=== PATIENT | female | born 1960 | race Caucasian/White ===

== ENCOUNTER 2019-04-15 16:27 | Emergency (ER) | payer BC, SELFPAY ==
--- NOTE | ~2019-04-15 | CT_ITS ---
EXAMINATION: CT abdomen pelvis wo con EXAM DATE: 04/15/2019 19:00 INDICATION: Right lower quadrant abdominal pain. TECHNIQUE: Spiral CT of the abdomen and pelvis was performed without contrast. Axial, coronal and s agittal images were reviewed. The dose-length product (DLP) for this examination was 405.02 mGy-cm. The exposure was tailored according to patient size (auto mA exposure control), and iterative recons truction (ASIR) was used as additional dose reduction technique. There is no prior study for jaimei son. FINDINGS: The liver, spleen, adrenal glands and pancreas are unremarkable. There are cholecystectomy clips. There is no nephrolithiasis or hydronephrosis. The uterus is not identified and has likely been surgically resected. The bladder is unremarkable. There is no retroperitoneal or pelvic lymph adenopathy. There is mild scattered arteriosclerotic disease. The appendix is not positively visualized. There is no pericecal inflammatory change to suggest appe ndicitis. There is moderate sigmoid predominant colonic diverticulosis. There is no adjacent inflamm atory change to suggest diverticulitis. The stomach and small bowel are unremarkable. There is mild s igmoid colonic diverticulosis. There is no adjacent inflammatory change to suggest diverticulitis. No free intraperitoneal gas. The heart is normal in size. There are no pericardial or pleural effu sions. The lung bases are unremarkable. The bones are unremarkable. There is right hip replacement . IMPRESSION: 1. No acute intra-abdominal findings. 2. Moderate colonic diverticulosis. Reviewed, dictated and finalized at location A.
[2019-04-15 16:42] VITALS: BP 165/72; PULSE 64; RESP 16; TEMP 36.8; O2SAT 100
[2019-04-15 16:55] LABS: Basophils Percent Auto 0.5 % (0.2-1.2); Eosinophils Absolute Auto 0.1 K/mm3 (0-0.3); Eosinophils Percent Auto 1.2 % (0-4.4); Hemoglobin 13.5 g/dL (12.0-15.0); Immature Granulocyte Absolute 0.02 K/mm3 (0.00-0.031); Immature Granulocyte Percent A 0.3 % (0-0.5); Lymphocytes Absolute Auto 2.07 K/mm3 (0.9-3.2); Lymphocytes Percent Auto 35.1 % (18.3-44.2); Mean Corpuscular HGB Conc 32.9 g/dl (32-36); Mean Corpuscular Hemoglobin 30.3 pg (26-34); Mean Corpuscular Volume 91.9 fl (80-100); Mean Platelet Volume 11.8 fl (7.4-10.4); Monocytes Absolute Auto 0.4 K/mm3 (0.1-0.6); Monocytes Percent Auto 6.9 % (2.6-8.5); Neutrophils Absolute Auto 3.3 K/mm3 (1.3-6.7); Platelet Count Result 205 k/mm3 (150-375); Red Blood Count 4.46 M/mm3 (4.2-5.4); Red Cell Distribution Width 13.1 % (11.5-14.5); White Blood Count 5.9 K/mm3 (4.5-10.0)
[2019-04-15 17:07] LABS: Alanine Aminotransferase 53 U/L (4-35); Albumin Level 4.6 g/dL (3.5-5.1); Alkaline Phosphatase 65 U/L (38-126); Aspartate Amino Transferase 38 U/L (14-36); Bilirubin,Total 0.6 mg/dL (0.2-1.3); Blood Urea Nitrogen 14 mg/dL (7-17); Carbon Dioxide 28 mmol/L (22-30); Chloride 104 mmol/L (98-107); Estimated CRCL calculation 65 ml/min; Estimated Glomerular Filt Rate > 60; Glucose 91 mg/dL (65-105); Lipase 149 U/L (23-300); Potassium 3.8 mmol/L (3.4-5.0); Sodium 138 mmol/L (137-145)
[2019-04-15 18:26] VITALS: BP 169/64; PULSE 56; RESP 16; O2SAT 99
--- NOTE | 2019-04-15 18:28 | ED.NAVMDI ---
HPI - Nausea/Vomiting/Diarrhea General Chief complaint: Nausea/Vomiting/Diarrhea Stated complaint: BLD IN STOOL Time Seen by Provider: 04/15/19 18:23 Source: patient and RN notes reviewed Mode of arrival: ambulatory Limitations: no limitations History of Present Illness HPI Narrative: A 59 y/o female presents to the ED with bright red bloody diarrhea for the past week. She states that she was started on Leflunomide last week and that shortly after she developed her symptoms. She reports associated nausea, RLQ ABD pain, and lightheadedness. She notes that she called her archery equipment repairer, Dr. Fisher, yesterday who told her to stop her Leflunomide, but that they called her back today and told her that she needed to come to the ED. She denies any vomiting, fevers, chills, rashes, syncope, or numbness. MD elicited complaint: diarrhea Pertinent past history: bowel obstruction and abdominal surgery Onset (ago): week(s) (1) Description of diarrhea: blood (bright red) Associated nausea: Yes Associated abdominal pain: Yes Location of pain: RLQ Context: new medication (Leflunomide) Associated symptoms: other (Lightheadedness) Related Data Home Medications Medication Instructions Recorded Confirmed hydroxychloroquine 200 mg tablet 200 mg PO DAILY 01/09/19 lorazepam 0.5 mg tablet 0.5 mg PO DAILY PRN 01/09/19 metoprolol succinate 25 mg capsule 25 mg PO DAILY 01/09/19 sprinkle, ext. release 24 hr metoprolol succinate 25 mg 25 mg PO DAILY 01/09/19 tablet,extended release 24 hr pantoprazole 40 mg granules 40 mg PO DAILY 01/09/19 delayed-release for susp in packet Allergies Allergy/AdvReac Type Severity Reaction Status Date / Time doxycycline Allergy Severe HIVES Verified 10/06/18 19:58 gabapentin Allergy Severe N/V Verified 10/06/18 19:58 Iodinated Contrast Media Allergy Severe SWELLING, Verified 10/06/18 19:58 SOB ofloxacin Allergy Severe HIVES Verified 10/06/18 19:58 shellfish derived Allergy Severe SWELLING, Verified 10/06/18 19:58 SOB sulfamethoxazole Allergy Severe SWELLING, Verified 10/06/18 19:58 SOB clarithromycin Allergy Unknown Unknown Verified 01/10/18 11:10 codeine Allergy Unknown Unknown Verified 01/10/18 11:09 iodine Allergy Unknown Unknown Verified 01/10/18 11:09 minocycline Allergy Unknown Unknown Verified 01/10/18 11:11 morphine Allergy Unknown Unknown Verified 01/10/18 11:09 naproxen Allergy Unknown Unknown Verified 01/10/18 11:10 Penicillins Allergy Unknown Unknown Verified 01/10/18 11:09 Sulfa (Sulfonamide Allergy Unknown Unknown Verified 01/10/18 11:09 Antibiotics) sulfamethizole Allergy Unknown Unknown Verified 01/10/18 11:09 trimethoprim Allergy Unknown Unknown Verified 01/10/18 11:10 brimonidine AdvReac Intermediate NOT Verified 10/06/18 19:58 EFFECTIVE desonide AdvReac Intermediate NOT Verified 10/06/18 19:58 EFFECTIVE metronidazole AdvReac Intermediate NOT Verified 10/06/18 19:58 EFFECTIVE mupirocin AdvReac Intermediate NOT Verified 10/06/18 19:58 EFFECTIVE naftifine AdvReac Intermediate NOT Verified 10/06/18 19:58 EFFECTIVE NOVACET CREAM AdvReac Intermediate NON Uncoded 03/29/18 10:21 EFFECTIVE. Review of Systems Review of Systems: Narrative: CONSTITUTIONAL: Denies fevers or chills. CARDIOVASCULAR: Reports lightheadedness. GASTROINTESTINAL: Denies vomiting. Reports bright red bloody diarrhea, nausea, and RLQ ABD pain. SKIN: Denies rash. NEUROLOGIC: Denies syncope or numbness. All systems reviewed & are unremarkable except as noted in HPI and below PMFSH Past Medical History Medical History (Updated 04/15/19 @ 19:30 by Magui Gonzalez MD) Anxiety Arthritis Bowel obstruction Brain concussion Depression Early cataracts, bilateral GERD (gastroesophageal reflux disease) History of inguinal hernia History of kidney stones History of rectal polyps Hx of bladder cancer Hx of rotator cuff tear Rt. Lupus erythematosus MVP (mitral valve prolapse)
[2019-04-15 18:51] LABS: Add Urine Microscopic? YES; Appearance Urine Cloudy (Clear); Bacteria Urine Trace /hpf; Bilirubin Urine Negative (Negative); Blood Urine Negative (Negative); Color Urine Yellow (Yellow); Glucose Urine UA Negative (Negative); Ketones Urine Negative (Negative); Leukocyte Esterase Ur 3+ LEU/UL (Negative); Mucus Urine Rare /lpf; Nitrate Urine Negative (Negative); Protein Urine Negative (Negative); Specific Grav Ur 1.014 (1.001-1.035); Squamous Epithelial Cell Urine Many /hpf (Few); Urobilinogen Urine Negative mg/dL (<2.0); WBC Urine 51-75 /hpf
[2019-04-15 19:23] VITALS: BP 161/75; PULSE 64; RESP 12; O2SAT 98
[2019-04-15 20:20] VITALS: BP 122/77; PULSE 66; RESP 17; O2SAT 98
== END 2019-04-15 20:20 | disposition home or self-care (01) ==
PROVIDERS: Emergency Medicine; Emergency Provider Emergency Medicine
DX: N39.0 Urinary tract infection, site not specified (principal); L93.0 Discoid lupus erythematosus; I34.1 Nonrheumatic mitral (valve) prolapse; K21.9 Gastro-esophageal reflux disease without esophagitis; F32.9 Major depressive disorder, single episode, unspecified; F41.9 Anxiety disorder, unspecified; Z96.611 Presence of right artificial shoulder joint; M19.90 Unspecified osteoarthritis, unspecified site; Z87.442 Personal history of urinary calculi; H26.9 Unspecified cataract; Z87.19 Personal history of other diseases of the digestive system; Z85.51 Personal history of malignant neoplasm of bladder; K57.90 Diverticulosis of intestine, part unspecified, without perforation or abscess without bleeding
CPT/HCPCS: 36415; 74176; 80053; 81001; 83690; 85025; 87086; 87088; 99284

== ENCOUNTER 2022-09-07 13:46 | Observation (INO) | payer BC, SELFPAY ==
[2022-09-07] VITALS (16 sets, daily range): BP systolic 104–163; BP diastolic 49–97; PULSE 61–82; RESP 17–24; TEMP 36.6–37.2; O2SAT 92–100; BMI 24.0
--- NOTE | ~2022-09-07 | CT_ITS ---
EXAMINATION: CT brain wo con INDICATION: Transient alteration of awareness COMPARISON: None TECHNIQUE: Standard unenhanced head CT. The dose-length product (DLP) was 605.33 mGy-cm. The mA was a djusted according to patient size. Iterative reconstruction technique was employed. FINDINGS: There is no acute intraparenchymal hemorrhage. No evidence of mass lesion. No evidence of a cute infarction. There is mild periventricular and subcortical hypodensity probably related to small vessel ischemic disease. There is mild prominence of the sulci and ventricles related to cerebral atr ophy. Intracranial calcified cerebral atherosclerosis is noted. There are no extra-axial collections. There is no mass effect or midline shift. The orbits and soft tissues are unremarkable. There is mil d mucosal thickening of the paranasal sinuses. IMPRESSION: 1. No acute intracranial abnormality. 2. Age related findings. Reviewed, dictated and finalized at location F.
--- NOTE | ~2022-09-07 | CT_ITS ---
EXAMINATION: CT cervical spine wo con DATE: 09/07/2022 16:06 INDICATION: Neck pain TECHNIQUE: Computed tomography (CT) of the cervical spine was performed without intravenous contrast. The dose-length product (DLP) was 466.54 mGy-cm. Automated exposure control and iterative reconstruc tion technique were employed. COMPARISON: 10/06/2018 FINDINGS: Bone alignment is normal. There is no fracture. There is moderate loss of intervertebral di sc space height at C4-5, C5-C6, and C6-7. The vertebral body heights are maintained. The odontoid pro cess is intact. Small degenerative osteophytes project from the anterior endplates of multiple verteb ral bodies. There is multilevel moderate facet and uncovertebral joint osteoarthritis. IMPRESSION: 1. Moderate cervical spondylosis without acute findings or significant interval change. Reviewed, dictated and finalized at location F.
--- NOTE | ~2022-09-07 | XR_ITS ---
EXAMINATION: XR chest 1V DATE: 09/07/2022 16:15 INDICATION: Cough. TECHNIQUE: A single frontal view of the chest was obtained. COMPARISON: Chest 2 views 04/15/2009 FINDINGS: There is no pneumonia, pleural effusion, or pneumothorax. The heart size is normal. Surgica l clips in the right upper quadrant are likely from cholecystectomy. IMPRESSION: 1. No acute cardiopulmonary disease. Reviewed, dictated and finalized at location L.
--- NOTE | ~2022-09-07 | XR_ITS ---
EXAMINATION: XR hip LT 2V w AP pelvis DATE: 09/07/2022 16:14 INDICATION: Left hip pain. Fall. TECHNIQUE: An anteroposterior view of the pelvis and 2 views of left hip were obtained. COMPARISON: None. FINDINGS: There is a total right hip arthroplasty in near-anatomic alignment. No fracture. No peripro sthetic lucency to suggest loosening or infection. Left hip joint space is normal. There is mild lumb ar spondylosis. IMPRESSION: 1. Normal left hip. 2. Total right hip arthroplasty in near-anatomic alignment. Reviewed, dictated and finalized at location L.
[2022-09-07] MEDS: ONDANSETRON INJ 4 MG/2 ML VIAL IV PUSH (15:48)
[2022-09-07] MEDS: LACTATED RINGERS 1,000 ML 999 ML IV CONT (15:49)
[2022-09-07 16:01] LABS: Basophils Percent Auto 0.2 % (0.2-1.2); Hematocrit 39.9 % (37.0-47.0); Hemoglobin 13.3 g/dL (12.0-15.0); Immature Granulocyte Absolute 0.01 K/mm3 (0.00-0.031); Immature Granulocyte Percent A 0.2 % (0-0.5); Lymphocytes Absolute Auto 0.93 K/mm3 (0.9-3.2); Lymphocytes Percent Auto 18.9 % (18.3-44.2); Mean Corpuscular HGB Conc 33.3 g/dl (32-36); Mean Corpuscular Hemoglobin 31.3 pg (26-34); Mean Corpuscular Volume 93.9 fl (80-100); Mean Platelet Volume 12.4 fl (7.4-10.4); Monocytes Absolute Auto 0.6 K/mm3 (0.1-0.6); Monocytes Percent Auto 12.6 % (2.6-8.5); Neutrophils Absolute Auto 3.4 K/mm3 (1.3-6.7); Neutrophils Percent Auto 68.1 % (45.5-73.1); Platelet Count Result 142 k/mm3 (150-375); Red Blood Count 4.25 M/mm3 (4.2-5.4); Red Cell Distribution Width 13.2 % (11.5-14.5); White Blood Count 4.9 K/mm3 (4.5-10.0)
[2022-09-07 16:11] LABS: Alanine Aminotransferase 44 U/L (6-35); Albumin Level 4.4 g/dL (3.5-5.1); Alkaline Phosphatase 50 U/L (38-126); Anion Gap 7 mmol/L (8-16); Aspartate Amino Transferase 52 U/L (14-36); Bilirubin,Total 0.6 mg/dL (0.2-1.3); Blood Urea Nitrogen 13 mg/dL (7-17); Calcium 8.3 mg/dL (8.4-10.2); Carbon Dioxide 27 mmol/L (22-30); Chloride 95 mmol/L (98-107); Estimated CRCL calculation 50 ml/min; Estimated Glomerular Filt Rate > 60; Glucose 116 mg/dL (65-110); Lipase 194 U/L (23-300); Magnesium 1.9 mg/dL (1.6-2.3); Potassium 3.2 mmol/L (3.4-5.0); Sodium 129 mmol/L (137-145)
[2022-09-07 16:23] LABS: Troponin I < 0.012 ng/mL (0.000-0.034)
--- NOTE | 2022-09-07 16:54 | ED.GENADULT ---
HPI - General Adult General Chief complaint: Recheck/Abnormal Lab/Rx Stated complaint: COVID + - states i'm dehydrated Time Seen by Provider: 09/07/22 15:16 Source: patient, family and RN notes reviewed Mode of arrival: wheelchair Limitations: no limitations History of Present Illness HPI narrative: This is a 62 year old female with history of sjrogrens, lupus who presents for evaluation of covid symptoms and syncope. Patient states starting on Sunday she developed sore throat, chills, and cough. She reports her sore throat has continued and she describes it has burning pain. She started having nausea, vomiting and diarrhea yesterday. She performed a home COVid test and she has been found to be positive. Her daughter states she heard a thud and she had found patient had passed outpatient. Patient states she was in the kitchen and next thing she was on the floor waking up to her daughter. She reports left neck pain and left hip pain from her fall. She denies chest pain. It is reported that patient is feeling lightheaded due to dehydration. Nursing staff reports that patient felt like she was going to pass out in triage so they placed her in a room Related Data Home Medications Medication Instructions Recorded Confirmed pantoprazole 40 mg granules 40 mg PO DAILY PRN Acid Reflux 01/09/19 09/07/22 delayed-release for susp in packet hydroxychloroquine 200 mg tablet 200 mg PO BID 01/18/22 09/07/22 (Plaquenil) nadolol 20 mg tablet 30 mg PO DAILY 01/18/22 09/07/22 azithromycin 250 mg tablet 250 mg PO DAILY 09/07/22 09/07/22 cyclobenzaprine 5 mg tablet 5 mg PO TID 09/07/22 09/07/22 cyclosporine 0.05 % eye drops in a 1 drp EACH EYE BID 09/07/22 09/07/22 dropperette hydrochlorothiazide 12.5 mg tablet 12.5 mg PO EVERY OTHER DAY 09/07/22 09/07/22 multivit with minerals-iron 18 1 tablet PO DAILY 09/07/22 09/07/22 mg-folic ac 400 mcg-vit K 25 mcg tablet (Adults Multivitamin) prednisone 5 mg tablet 5 mg PO DAILY PRN arthritis 09/07/22 09/07/22 pregabalin 50 mg capsule 50 mg PO Q12H 09/07/22 09/07/22 Allergies Allergy/AdvReac Type Severity Reaction Status Date / Time doxycycline Allergy Severe HIVES Verified 09/07/22 14:33 gabapentin Allergy Severe N/V Verified 09/07/22 14:33 Iodinated Contrast Media Allergy Severe SWELLING, Verified 09/07/22 14:33 SOB ofloxacin Allergy Severe HIVES Verified 09/07/22 14:33 shellfish derived Allergy Severe SWELLING, Verified 09/07/22 14:33 SOB sulfamethoxazole Allergy Severe SWELLING, Verified 09/07/22 14:33 SOB clarithromycin Allergy Unknown Unknown Verified 09/07/22 14:33 codeine Allergy Unknown Unknown Verified 09/07/22 14:33 iodine Allergy Unknown Unknown Verified 09/07/22 14:33 minocycline Allergy Unknown Unknown Verified 09/07/22 14:33 morphine Allergy Unknown Unknown Verified 09/07/22 14:33 naproxen Allergy Unknown Unknown Verified 09/07/22 14:33 Penicillins Allergy Unknown Unknown Verified 09/07/22 14:33 Sulfa (Sulfonamide Allergy Unknown Unknown Verified 09/07/22 14:33 Antibiotics) sulfamethizole Allergy Unknown Unknown Verified 09/07/22 14:33 trimethoprim Allergy Unknown Unknown Verified 09/07/22 14:33 brimonidine AdvReac Intermediate NOT Verified 09/07/22 14:33 EFFECTIVE desonide AdvReac Intermediate NOT Verified 09/07/22 14:33 EFFECTIVE metronidazole AdvReac Intermediate NOT Verified 09/07/22 14:33 EFFECTIVE mupirocin AdvReac Intermediate NOT Verified 09/07/22 14:33 EFFECTIVE naftifine AdvReac Intermediate NOT Verified 09/07/22 14:33 EFFECTIVE NOVACET CREAM AdvReac Intermediate NON Uncoded 09/07/22 14:33 EFFECTIVE. Review of Systems Constitutional: Constitutional: Reports fatigue and Reports weakness ENT: Reports sore throat Cardiovascular: Cardiovascular: Denies syncope, Denies rapid heart rate, Denies irregular heart rhythm, Denies leg edema and Denies dyspnea Respiratory: Respiratory: Denies chest congestion, Reports coug
[2022-09-07 17:00] LABS: Influenza A QL RT-PCR Negative (Negative); Influenza B QL RT-PCR Negative (Negative); SARS-CoV-2 RNA PCR Positive (Negative)
[2022-09-07] MEDS: POTASSIUM CHLORIDE 20 MEQ ER TABLET 40 MEQ PO (17:20)
[2022-09-07] MEDS: SODIUM CHLORIDE 0.9% IV 1,000 ML 999 ML IV CONT (17:23)
[2022-09-07 17:45] LABS: Appearance Urine Clear (Clear); Bacteria Urine None Seen /hpf; Bilirubin Urine Negative (Negative); Blood Urine Negative (Negative); Color Urine Yellow (Yellow); Glucose Urine UA Negative (Negative); Ketones Urine Trace mg/dL (Negative); Leukocyte Esterase Ur Trace LEU/UL (Negative); Nitrate Urine Negative (Negative); Non Pathogenic Casts 0-2; Protein Urine 1+ mg/dL (Negative); RBC Urine 0-2 /hpf (0-2); Specific Grav Ur 1.014 (1.001-1.035); Squamous Epithelial Cell Urine Moderate /hpf (Few); Urobilinogen Urine 0.2 mg/dL (<2.0); WBC Urine 0-5 /hpf
[2022-09-07 17:53] LABS: Add Urine Microscopic? YES
[2022-09-07 19:35] LABS: Partial Thromboplastin Time 30.7 SECONDS (22.3-36.8)
--- NOTE | 2022-09-07 19:58 | ADMGEN ---
This patient, Josy Pacheco, was admitted to Medical Room 247-. Patient/family oriented to hospital policies and general routines including ID bracelet, bed and alarms, visiting hours, pain management, procedures, bathroom and other care routines, personal items, smoking policy, room service/diet, and visiting hours. Information on how to activate the Rapid Response Team has been discussed. Patient/Family are encouraged to report perceived risks to care and to ask questions if they do not understand what they are told or what they should do.
[2022-09-07] MEDS: SODIUM CHLORIDE 0.9% IV 1,000 ML 125 ML IV CONT (20:24)
--- NOTE | 2022-09-07 21:18 | PM.IMHP ---
H&P: HPI History of Present Illness Date/Time: 09/07/22 21:18 Chief Complaint: Dehydrated Narrative: This is a 62-year-old female patient has a history of social runs and lupus. Patient was having symptoms of COVID with runny nose sore throat chills and cough. The patient stated that she had 1 COVID vaccine and that she had swelling from the vaccine. The patient was told not to take anymore vaccines. The patient was weak and fell today. She was in the kitchen and then she woke up on the floor looking at her daughter. She reports left neck pain and left hip pain after the fall. The patient is not hypoxic again not requiring any oxygen at this time. The patient has wheezing and is coughing clear phlegm. White count is normal. Platelet count 142. Her sodium was noted to be 129. Potassium 3.2. Chloride 95. Glucose 116. Patient was positive for COVID. Patient appears to have a contaminated urine. Chest x-ray was read as no acute cardiopulmonary disease. Hip and pelvis x-ray1. Normal left hip. 2. Total right hip arthroplasty in near-anatomic alignment. Cervical spine CT. Moderate cervical spondylosis without acute findings or significant interval change. Head CT was read as the following. No acute intracranial abnormality. 2. Age related findings. Patient was given Zofran, lactated Ringer's, normal saline, and potassium. Patient was admitted to observation status on the date of service of 09/07/2022. Review of Systems Review of Systems: All systems reviewed & are unremarkable except as noted in HPI and below Constitutional: Constitutional: Reports as per HPI and Reports no additional constitutional complaints Eyes: Eyes: Reports as per HPI and Reports no additional eye complaints ENT: Reports system reviewed and no additional complaints, except as documented and Reports Normal hearing present Cardiovascular: Cardiovascular: Reports no additional cardiovascular complaints Respiratory: Respiratory: Reports no additional respiratory complaints and Reports no additional respiratory complaints Gastrointestinal: Gastrointestinal: Reports as per HPI and Reports no additional gastrointestinal complaints Musculoskeletal: Musculoskeletal: Reports no additional musculoskeletal complaints Integumentary/Breasts: Skin/Breast: Reports system reviewed and no additional complaints, except as docu and Reports as per HPI Neurologic: Reports system reviewed and no additional complaints, except as documented, Reports as per HPI and Reports Normal hearing present Psychiatric: Psychiatric: Reports no additional psychiatric complaints and Reports as per HPI Endocrine: Endocrine: Reports no additional endocrine complaints Hematologic/Lymphatic: Hematologic/Lymphatic: Reports no additional hematologic/lymphatic complaints Allergic/Immunologic: Allergic/Immunologic: Reports no additional allergic/immunologic complaints [facility] Past Medical History Medical History (Updated 09/08/22 @ 02:42 by Delores Hayward NP) Anxiety Arthritis Bowel obstruction Brain concussion Depression Early cataracts, bilateral GERD (gastroesophageal reflux disease) History of inguinal hernia History of kidney stones History of rectal polyps Hx of bladder cancer Hx of rotator cuff tear Rt. Lupus erythematosus MVP (mitral valve prolapse) Surgical History Surgical History (Updated 09/08/22 @ 02:39 by Delores Hayward NP) History of appendectomy History of bladder suspension procedure History of cholecystectomy History of colonoscopy History of cystoscopy History of dilation and curettage x2. History of hip surgery History of hysterectomy History of inguinal hernia repair History of intestinal surgery For bowel obstruction. History of oophorectomy Rt. History of shoulder replacement Rt. Hx of cardiac cath Status post total hip replacement, right Family History Family History Father Aline
[2022-09-07] MEDS: ACETAMINOPHEN 325 MG TABLET 650 MG PO (22:02)
[2022-09-08] VITALS (10 sets, daily range): BP systolic 129–141; BP diastolic 59–65; PULSE 53–69; RESP 18–20; TEMP 35.9–36.9; O2SAT 98
[2022-09-08] MEDS: ACETAMINOPHEN 325 MG TABLET 650 MG PO ×3 (01:42→14:58)
[2022-09-08 03:02] LABS: Hematocrit 36.2 % (37.0-47.0); Hemoglobin 11.9 g/dL (12.0-15.0); Immature Granulocyte Absolute 0.01 K/mm3 (0.00-0.031); Immature Granulocyte Percent A 0.2 % (0-0.5); Immature Platelet Fraction Pct 9.8 % (0.9-11.2); Lymphocytes Absolute Auto 1.65 K/mm3 (0.9-3.2); Lymphocytes Percent Auto 36.3 % (18.3-44.2); Mean Corpuscular HGB Conc 32.9 g/dl (32-36); Mean Corpuscular Hemoglobin 31.2 pg (26-34); Mean Corpuscular Volume 94.8 fl (80-100); Mean Platelet Volume 11.6 fl (7.4-10.4); Monocytes Absolute Auto 0.6 K/mm3 (0.1-0.6); Monocytes Percent Auto 12.3 % (2.6-8.5); Neutrophils Absolute Auto 2.3 K/mm3 (1.3-6.7); Neutrophils Percent Auto 51.2 % (45.5-73.1); Platelet Count Result 130 k/mm3 (150-375); Red Blood Count 3.82 M/mm3 (4.2-5.4); Red Cell Distribution Width 13.1 % (11.5-14.5); White Blood Count 4.6 K/mm3 (4.5-10.0)
[2022-09-08 03:12] LABS: Alanine Aminotransferase 37 U/L (6-35); Albumin Level 3.4 g/dL (3.5-5.1); Alkaline Phosphatase 46 U/L (38-126); Anion Gap 6 mmol/L (8-16); Aspartate Amino Transferase 42 U/L (14-36); Bilirubin,Total 0.4 mg/dL (0.2-1.3); Blood Urea Nitrogen 8 mg/dL (7-17); Calcium 7.4 mg/dL (8.4-10.2); Carbon Dioxide 21 mmol/L (22-30); Chloride 106 mmol/L (98-107); Estimated CRCL calculation 63 ml/min; Estimated Glomerular Filt Rate > 60; Glucose 122 mg/dL (65-110); Potassium 2.9 mmol/L (3.4-5.0); Prothrombin Time 13.1 Seconds (11.1-14.7); Sodium 133 mmol/L (137-145)
[2022-09-08 05:41] LABS: Potassium Urine Random 6.1 meq/L; Sodium Urine Random 28 meq/L
[2022-09-08] MEDS: ENOXAPARIN 40 MG/0.4 ML SYRINGE SUB-Q (08:18)
[2022-09-08] MEDS: nadoloL 10 MG TABLET 30 MG PO (08:19)
[2022-09-08] MEDS: MULTIVITAMINS /C LUTEIN (CENTRUM SILVER) TABLET *BKC 1 TAB PO (08:19)
[2022-09-08] MEDS: HYDROXYCHLOROQUINE SULFATE 200 MG TABLET PO ×2 (08:19→21:17)
[2022-09-08] MEDS: CYCLOBENZAPRINE HCL 5 MG TABLET PO ×2 (08:19→12:35)
[2022-09-08] MEDS: cycloSPORINE 0.4 ML OPHTH SOLUTION 1 DROP EACH EYE ×2 (08:19→21:17)
[2022-09-08] MEDS: DEXAMETHASONE 2 MG TABLET 6 MG PO (08:19)
[2022-09-08] MEDS: PREGABALIN (*CRX) 50 MG CAPSULE PO ×2 (08:19→21:17)
[2022-09-08] MEDS: POTASSIUM CHLORIDE 20 MEQ ER TABLET 40 MEQ PO ×2 (09:12→16:39)
--- NOTE | 2022-09-08 11:12 | PM.IMPN ---
Progress Note: A&P Assessment and Plan (1) COVID: Code(s): U07.1 - COVID-19 Status: Acute Assessment and Plan: The patient currently is not on oxygen. Continue with supportive care. The patient is not fully vaccinated. (2) Lupus (systemic lupus erythematosus): Code(s): M32.9 - Systemic lupus erythematosus, unspecified Status: Acute Assessment and Plan: Continue with Flexeril. Continue with hydro chloroquine, and Lyrica (3) Degenerative disc disease, cervical: Code(s): M50.30 - Other cervical disc degeneration, unspecified cervical region Status: Acute Assessment and Plan: Continue with Flexeril. Continue with hydro chloroquine, and Harini (4) Hyponatremia: Code(s): E87.1 - Hypo-osmolality and hyponatremia Status: Acute Assessment and Plan: Hold hydrochlorothiazide. Stop IV fluids at this point. Recheck BMP. Subjective Date/time seen: 09/08/22 11:12 Interval history: Generalized weakness. Also has cough but not requiring any oxygen Review of Systems Review of Systems: All systems reviewed & are unremarkable except as noted in HPI and below Constitutional: Constitutional: Reports as per HPI and Reports no additional constitutional complaints Eyes: Eyes: Reports as per HPI and Reports no additional eye complaints ENT: Reports system reviewed and no additional complaints, except as documented and Reports Normal hearing present Cardiovascular: Cardiovascular: Reports no additional cardiovascular complaints Respiratory: Respiratory: Reports no additional respiratory complaints and Reports no additional respiratory complaints Gastrointestinal: Gastrointestinal: Reports as per HPI and Reports no additional gastrointestinal complaints Musculoskeletal: Musculoskeletal: Reports no additional musculoskeletal complaints Integumentary/Breasts: Skin/Breast: Reports system reviewed and no additional complaints, except as docu and Reports as per HPI Neurologic: Reports system reviewed and no additional complaints, except as documented, Reports as per HPI and Reports Normal hearing present Psychiatric: Psychiatric: Reports no additional psychiatric complaints and Reports as per HPI Endocrine: Endocrine: Reports no additional endocrine complaints Hematologic/Lymphatic: Hematologic/Lymphatic: Reports no additional hematologic/lymphatic complaints Allergic/Immunologic: Allergic/Immunologic: Reports no additional allergic/immunologic complaints Exam Const: General: cooperative, healthy appearing, comfortable, no acute distress, well developed, awake, Physically active, average body habitus and well nourished Nutritional Appearance: average body habitus and well nourished Orientation/consciousness: oriented to person, oriented to place, oriented to time and patient oriented x3 Limitations: no limitations HENMT: Head: normal to inspection, No palpable skull fracture present, normocephalic and atraumatic Ears: hearing grossly normal bilaterally and external ears normal Face/Nose/Sinus: Normal external nose present and Normal nares present Eyes: General: appearance normal, both eyes and all related structures Alignment and Position: alignment normal Periorbital: periorbital findings normal Eyelids: eyelids normal Sclera: sclerae normal Cornea: corneas normal Pupils: Equal, round and reactive pupils present EOM: EOMs intact bilaterally Neck: Neck: normal visual inspection, full ROM, no lymphadenopathy, trachea midline and supple Chest: Chest palpation & inspection: normal inspection of the chest Resp: Effort & Inspection: normal respiratory effort Auscultation: clear to auscultation bilaterally and wheezes Cardio: Palpation: normal PMI Rate: regular rate Rhythm: regular rhythm Heart sounds: S1 normal heart sound present and S2 normal heart sound present Peripheral pulses: Peripheral pulses 2+ throughout GI: Inspection: normal to inspecti
--- NOTE | 2022-09-08 15:15 | PCPTNOTE ---
Attempted to see for physical therapy evaluation. Pt refused d/t dizziness and lightheadedness. Rn notified, will continue to follow
[2022-09-08] MEDS: ONDANSETRON INJ 4 MG/2 ML VIAL IV PUSH (19:23)
[2022-09-08] MEDS: PROCHLORPERAZINE EDISYLATE 10 MG/2 ML VIAL 5 MG IM (22:03)
[2022-09-09] VITALS (8 sets, daily range): BP systolic 126–147; BP diastolic 51–63; PULSE 52–82; RESP 17–18; TEMP 36.1–36.8; O2SAT 96–97
[2022-09-09 06:35] LABS: Anion Gap 6 mmol/L (8-16); Blood Urea Nitrogen 9 mg/dL (7-17); Calcium 8.5 mg/dL (8.4-10.2); Carbon Dioxide 26 mmol/L (22-30); Chloride 104 mmol/L (98-107); Estimated CRCL calculation 72 ml/min; Estimated Glomerular Filt Rate > 60; Glucose 107 mg/dL (65-110); Magnesium 1.8 mg/dL (1.6-2.3); Potassium 3.8 mmol/L (3.4-5.0); Sodium 136 mmol/L (137-145)
[2022-09-09] MEDS: cycloSPORINE 0.4 ML OPHTH SOLUTION 1 DROP EACH EYE (09:09)
[2022-09-09] MEDS: DEXAMETHASONE 2 MG TABLET 6 MG PO (09:09)
[2022-09-09] MEDS: nadoloL 10 MG TABLET 30 MG PO (09:09)
[2022-09-09] MEDS: PREGABALIN (*CRX) 50 MG CAPSULE PO (09:09)
[2022-09-09] MEDS: POTASSIUM CHLORIDE 20 MEQ ER TABLET 40 MEQ PO (09:10)
[2022-09-09] MEDS: ENOXAPARIN 40 MG/0.4 ML SYRINGE SUB-Q (09:10)
[2022-09-09] MEDS: MULTIVITAMINS /C LUTEIN (CENTRUM SILVER) TABLET *BKC 1 TAB PO (09:10)
[2022-09-09] MEDS: HYDROXYCHLOROQUINE SULFATE 200 MG TABLET PO (09:10)
[2022-09-09] MEDS: PANTOPRAZOLE 40 MG TABLET PO (09:10)
--- NOTE | 2022-09-09 10:45 | PM.DS ---
DS: Admitting Diagnosis Discharge Date 09/09/2022 Admitting Diagnosis COVID Hypokalemia DS: Discharge Diagnosis Discharge Diagnosis (1) Hypokalemia: Code(s): E87.6 - Hypokalemia Status: Acute (2) Hyponatremia: Code(s): E87.1 - Hypo-osmolality and hyponatremia Status: Acute (3) COVID: Code(s): U07.1 - COVID-19 Status: Acute (4) Lupus (systemic lupus erythematosus): Code(s): M32.9 - Systemic lupus erythematosus, unspecified Status: Acute DS: Summary Hospital Course Hospital Course: This is a 62-year-old female patient has a history of lupus.? Patient was having symptoms of COVID with runny nose sore throat chills and cough.? The patient was weak and fell today.? She was in the kitchen and then she woke up on the floor looking at her daughter.? She reports left neck pain and left hip pain after the fall.? The patient is not hypoxic and not requiring any oxygen at this time.? The patient has wheezing and is coughing clear phlegm.? White count is normal.? Platelet count 142.? Her sodium was noted to be 129.? Potassium 3.2.? Chloride 95.? Glucose 116.? Patient was positive for COVID.? Chest x-ray was read as no acute cardiopulmonary disease.? Hip and pelvis x-ray1. Normal left hip. 2. Total right hip arthroplasty in near-anatomic alignment. Cervical spine CT. Moderate cervical spondylosis without acute findings or significant interval change. Head CT was read as the following. No acute intracranial abnormality. 2. Age related findings.? Patient was given Zofran, lactated Ringer's, normal saline, and potassium.? Patient was admitted to observation status on the date of service of 09/07/2022. Patient's sodium and potassium were replaced. Hydrochlorothiazide was held which can cause hyponatremia and hypokalemia. Patient was started on Decadron since he is on steroids at home. At this time she is clinically stable and being discharged home. Will discontinue hydrochlorothiazide indefinitely. Patient is on Nadolol at home for hypertension Time Spent with Patient Time attestation: Total time spent providing and/or coordinating discharge services: DS: Data Data Completed and Pending Labs on day of discharge: Labs from last 24 hours 09/09/22 06:10 Sodium 136 L Potassium 3.8 Chloride 104 Carbon Dioxide 26 Anion Gap 6 L BUN 9 Creatinine 0.60 L Estim Creat Clear Calc 72 Estimated GFR > 60 Glucose 107 Calcium 8.5 Magnesium 1.8 Discharge Plan Discharge Discharging Clinician: Luisito Huerta Anticipated Discharge Date/Time: 09/09/22 10:43 Patient Disposition: Home, Self-Care Activity: no preference Diet: heart healthy Patient Instructions: Antibiotic Form Stand Alone Forms: General Discharge Information Follow-up/Referrals: PHYSICIAN NOT ON STAFF,NONSTAFF [Primary Care Provider] - Discharge Medications: Continued pantoprazole [address] for susp in packet 40 mg PO DAILY PRN (Reason: Acid Reflux) hydroxychloroquine [Plaquenil] 200 mg tablet 200 mg PO BID nadolol 20 mg tablet 30 mg PO DAILY prednisone 5 mg tablet 5 mg PO DAILY PRN (Reason: arthritis) cyclobenzaprine 5 mg tablet 5 mg PO TID Rx Instructions: muscle relaxer cyclosporine 0.05 % dropperette 1 drp EACH EYE BID pregabalin 50 mg capsule 50 mg PO Q12H Adults Multivitamin 18 mg iron-400 mcg-25 mcg Tablet 1 tablet PO DAILY Discontinued azithromycin 250 mg tablet 250 mg PO DAILY Rx Instructions: take 2 day one and then 1 tab for 4 days - has not started hydrochlorothiazide 12.5 mg tablet 12.5 mg PO EVERY OTHER DAY Rx Instructions: due 09/08/22 Date of admission: 09/07/22 18:23 Primary Care Provider: PHYSICIAN NOT ON STAFF,NONSTAFF Admitting Provider: Ezequiel Burgess Attending physician on admission: Luisito Huerta Condition: Stable
--- NOTE | 2022-09-09 10:56 | PCPTNOTE ---
patient has discharged orders, but is not going home until this afternoon. Checked with patient and she reports she is moving around well, (which nursing agreed with) and does not want to be seen by physical therapy will check on her if she is still here tomorrow.
== END 2022-09-09 16:30 | disposition home or self-care (01) ==
LOC: ANHED 15:16 → ANH2MED 19:41
PROVIDERS: Nurse Practitioner; Admitting Provider Internal Medicine; Emergency Provider General Practice; Visit Provider Hospitalist
DX: E87.6 Hypokalemia (principal); E87.1 Hypo-osmolality and hyponatremia; U07.1 COVID-19; M32.9 Systemic lupus erythematosus, unspecified; R40.4 Transient alteration of awareness; R05.9 Cough, unspecified; R06.2 Wheezing; R55 Syncope and collapse; Z79.899 Other long term (current) drug therapy; M25.552 Pain in left hip; W19.XXXA Unspecified fall, initial encounter; R42 Dizziness and giddiness; M50.30 Other cervical disc degeneration, unspecified cervical region; D69.6 Thrombocytopenia, unspecified; R53.83 Other fatigue; R53.1 Weakness; E87.8 Other disorders of electrolyte and fluid balance, not elsewhere classified; F41.9 Anxiety disorder, unspecified; M19.90 Unspecified osteoarthritis, unspecified site; M47.812 Spondylosis without myelopathy or radiculopathy, cervical region; F32.A Depression, unspecified; K21.9 Gastro-esophageal reflux disease without esophagitis; F10.90 Alcohol use, unspecified, uncomplicated; Z79.52 Long term (current) use of systemic steroids
CPT/HCPCS: 36415; 70450; 71045; 72125; 73502; 80048; 80053; 81001; 83605; 83690; 83735; 83935; 84133; 84300; 84484; 85025; 85055; 85610; 85730; 87636; 96365; 96366; 96372; 96375; 96376; 99285; A9270; G0378; J0780; J1650; J2405; J7030; J7120; J8540

== ENCOUNTER 2023-08-21 15:58 | Observation (INO) | payer MEDICARE, SELFPAY ==
[2023-08-21] VITALS (33 sets, daily range): BP systolic 104–160; BP diastolic 56–90; PULSE 49–67; RESP 11–22; TEMP 36.2–36.8; O2SAT 93–100; BMI 25.7
--- NOTE | ~2023-08-21 | XR_ITS ---
EXAMINATION: XR chest 2V Exam Date/Time: 08/21/2023 18:05 CDT HISTORY: htn, pain in L arm, abnml ekg Comparison: 09/07/2022. RESULT: Lines, tubes, and devices: Cholecystectomy clips. Lungs and pleura: Clear. Cardiomediastinal silhouette: Stable. Other: No acute osseous or upper abdominal finding. IMPRESSION: No acute cardiopulmonary process. Reviewed, dictated and finalized at location K.
--- NOTE | ~2023-08-21 | NM_ITS ---
EXAMINATION: NM juana stress w perfusion DATE: 08/22/2023 11:30 INDICATION: Chest pain TECHNIQUE: Rest images were obtained following intravenous administration of 8.4 mCi Tc99m tetrofosmi n (Myoview). The patient was infused intravenously with Lexiscan (Regadenoson). Then, 32.7 mCi Tc99m tetrofosmin (Myoview) was administered intravenously, and stress images were obtained. Data was recon structed into short axis and horizontal and vertical long axis SPECT images. Gated SPECT images were also obtained. COMPARISON: None. FINDINGS: There is no definite reversible or fixed perfusion abnormality to suggest ischemia or infar ction. There is normal left ventricular chamber size, wall motion and ejection fraction. Left ventr icular ejection fraction measures 65%. IMPRESSION: 1. Normal myocardial perfusion at rest and during stress. 2. Left ventricular ejection fraction measuring 65%. Reviewed, dictated and finalized at location A.
--- NOTE | ~2023-08-21 | XR_ITS ---
XR shoulder LT min 2V 08/22/2023 09:37 INDICATION: Left shoulder pain PROCEDURE: 4 views left shoulder COMPARISON: No prior studies for comparison. FINDINGS: Fracture, dislocation or subluxation is not identified. The soft tissues appear within norm al limits. No foreign bodies are identified. IMPRESSION: 1: NO ACUTE BONE OR JOINT ABNORMALITY IDENTIFIED. Reviewed, dictated and finalized at location B.
--- NOTE | ~2023-08-21 | CT_ITS ---
EXAMINATION: CT brain wo con DATE: 08/21/2023 18:08 INDICATION: HTN, HAs, blurry vision . TECHNIQUE: Computed tomography (CT) of the head was performed without intravenous contrast. The mA wa s adjusted according to patient size. Iterative reconstruction technique was employed. The dose-lengt h product was 605.33 mGy-cm. COMPARISON: 09/07/2022. FINDINGS: No acute intracranial hemorrhage or extra-axial fluid collection. No hydrocephalus, mass, or herniation. No acute ischemic infarct. Unremarkable dural venous sinus attenuation. No acute osseous abnormality. Mild right maxillary and ethmoid mucosal thickening, the remaining aerated spaces are clear. Mild atrophy. Moderate chronic white matter change. Atherosclerotic intracranial calcification. IMPRESSION: No acute intracranial process. Reviewed, dictated and finalized at location K.
--- NOTE | 2023-08-21 16:06 | ECG_ITS ---
Test Date: 2023-08-21 16:14:44 Measurements Intervals Rad[place] Rate: 56 P: 26 HI: 181 QRS: -29 QRSD: 111 T: 2 QT: 439 QTc: 424 Interpretive Statements SINUS BRADYCARDIA INCOMPLETE LEFT BUNDLE BRANCH BLOCK CONSIDER INFERIOR INFARCT, AGE INDETERMINATE BORDERLINE T WAVE ABNORMALITY- ANTERIOR LEADS BASELINE ARTIFACT- I, II, III, AVR, AVL ABNORMAL ECG No previous ECG available for comparison Electronically Signed On 08-22-2023 07:27:10 CDT by Saurav Gonsalez D.O.
--- NOTE | 2023-08-21 17:19 | ED.RECABL ---
HPI - Recheck/Abnormal Lab/Rx General Chief Complaint: Recheck/Abnormal Lab/Rx <Pam Hess PA-C - Last Filed: 08/21/23 21:48> Stated Complaint: abnormal EKG <Pam Hess PA-C - Last Filed: 08/21/23 21:48> Time Seen by Provider: 08/21/23 17:16 <SHARIF Hyatt Last Filed: 08/21/23 21:48> Source: patient and old records reviewed <SHARIF Hyatt Last Filed: 08/21/23 21:48> Mode of arrival: ambulatory <SHARIF Hyatt Last Filed: 08/21/23 21:48> Limitations: no limitations <SHARIF Hyatt Last Filed: 08/21/23 21:48> History of Present Illness HPI narrative: Patient is a 63 y/o female, with PMH of SLE, Sjogren's syndrome, galen mastectomy, MVP, who presents to the ED w/ c/o HTN, HAs, LUE pain, abnormal EKG. Patient reports she has had intermittent HAs over the past 2 weeks. She has been taking her BP routinely and noted it to be elevated over the past 2 weeks, ranging from 140s-160s systolic, which she states is high for her. Typically 110s systolic. She is on Nadolol for HTN. She states her carpenter mine told her to double this medication for BP control, though patient did not tolerate this d/t her HR being low. She then states over the last 3 days, she has had pain in her L shoulder radiating down her L upper arm and into her L sided chest. She saw her PCP in the office today and was found to have an abnormal EKG and was referred to the ED for further evaluation. Patient does admit that left arm and shoulder pain is worse with exertion. She also reports intermittent BLE swelling, fatigue with exertion, noting she has to rest every few minutes to gather herself. Patient denies previous hx of CAD/cardiac stenting/ND, but reports she had a stress test a couple of months ago which was abnormal. She was referred to have a cardiac chest CT at the beginning of September. Patient also reports having worsening HAs and intermittent blurry vision over the last few days. Denies significant SOB, focal weakness/numbness, vision loss. Patient sees Dr. Diogo Bryson with Cardiology at [facility]. <Pam Hess PA-C - Last Filed: 08/21/23 21:48> Related Data Home Medications: Home Medications Medication Instructions Recorded Confirmed hydroxychloroquine 200 mg tablet 200 mg PO BID 01/18/22 08/21/23 (Plaquenil) nadolol 20 mg tablet 30 mg PO DAILY 01/18/22 08/21/23 cyclobenzaprine 5 mg tablet 5 mg PO TID 09/07/22 08/21/23 cyclosporine 0.05 % eye drops in a 1 drp EACH EYE BID 09/07/22 08/21/23 dropperette ascorbic acid (vitamin C) 100 mg 100 mg PO DAILY 05/07/23 08/21/23 chewable tablet ergocalciferol (vitamin D2) 1,250 1,250 mcg PO WEEKLY 05/07/23 08/21/23 mcg (50,000 unit) capsule pilocarpine HCl 5 mg tablet 5 mg PO TID 05/07/23 08/21/23 aspirin 81 mg tablet,delayed 81 mg PO DAILY 08/21/23 08/21/23 release furosemide 20 mg tablet 20 mg PO DAILY 08/21/23 08/21/23 <Pam Hess PA-C - Last Filed: 08/21/23 21:48> Allergies/Adverse Reactions: Allergies Allergy/AdvReac Type Severity Reaction Status Date / Time doxycycline Allergy Severe HIVES Verified 08/21/23 15:58 gabapentin Allergy Severe N/V Verified 08/21/23 15:58 Iodinated Contrast Media Allergy Severe SWELLING, Verified 08/21/23 15:58 SOB ofloxacin Allergy Severe HIVES Verified 08/21/23 15:58 shellfish derived Allergy Severe SWELLING, Verified 08/21/23 15:58 SOB sulfamethoxazole Allergy Severe SWELLING, Verified 08/21/23 15:58 SOB clarithromycin Allergy Unknown Unknown Verified 08/21/23 15:58 codeine Allergy Unknown Unknown Verified 08/21/23 15:58 iodine Allergy Unknown Unknown Verified 08/21/23 15:58 minocycline Allergy Unknown Unknown Verified 08/21/23 15:58 morphine Allergy Unknown Unknown Verified 08/21/23 15:58 naproxen Allergy Unknown Unknown Verified 08/21/23 15:58 Penicillins Allergy Unknown Unknown Verified 08/21/23 15:
[2023-08-21] MEDS: ASPIRIN 81 MG CHEWABLE TABLET 324 MG PO (17:53)
[2023-08-21] MEDS: NITROGLYCERIN SL 0.4 MG TABLET SUBLINGUAL (17:54)
[2023-08-21 17:55] LABS: Basophils Percent Auto 0.6 % (0.2-1.2); Eosinophils Absolute Auto 0.2 K/mm3 (0-0.3); Eosinophils Percent Auto 2.2 % (0-4.4); Hematocrit 38.6 % (37.0-47.0); Hemoglobin 13.1 g/dL (12.0-15.0); Immature Granulocyte Absolute 0.01 K/mm3 (0.00-0.031); Immature Granulocyte Percent A 0.1 % (0-0.5); Lymphocytes Absolute Auto 2.06 K/mm3 (0.9-3.2); Mean Corpuscular HGB Conc 33.9 g/dl (32-36); Mean Corpuscular Hemoglobin 32.3 pg (26-34); Mean Corpuscular Volume 95.1 fl (80-100); Mean Platelet Volume 11.7 fl (7.4-10.4); Monocytes Absolute Auto 0.6 K/mm3 (0.1-0.6); Monocytes Percent Auto 8.6 % (2.6-8.5); Neutrophils Percent Auto 58.5 % (45.5-73.1); Platelet Count Result 207 k/mm3 (150-375); Red Blood Count 4.06 M/mm3 (4.2-5.4); Red Cell Distribution Width 13.2 % (11.5-14.5); White Blood Count 6.9 K/mm3 (4.5-10.0)
[2023-08-21 18:07] LABS: Alanine Aminotransferase 54 U/L (6-35); Albumin Level 4.5 g/dL (3.5-5.1); Alkaline Phosphatase 56 U/L (38-126); Anion Gap 11 mmol/L (4-12); Aspartate Amino Transferase 39 U/L (14-36); Bilirubin,Total 0.8 mg/dL (0.2-1.3); Blood Urea Nitrogen 15 mg/dL (7-17); Calcium 8.9 mg/dL (8.4-10.2); Carbon Dioxide 27 mmol/L (22-30); Chloride 101 mmol/L (98-107); Estimated CRCL calculation 62 ml/min; Estimated Glomerular Filt Rate > 60; Glucose 112 mg/dL (65-110); Magnesium 2.2 mg/dL (1.6-2.3); Potassium 3.5 mmol/L (3.4-5.0); Sodium 139 mmol/L (137-145)
[2023-08-21 18:11] LABS: Partial Thromboplastin Time 24.9 Seconds (22.3-36.8); Prothrombin Time 13.3 Seconds (11.1-14.7)
[2023-08-21 18:18] LABS: NT Pro B Type Natriuretic Pept 638 pg/mL (19.9-100); Troponin I < 0.012 ng/mL (0.000-0.034)
[2023-08-21 18:19] LABS: D Dimer 0.61 ug/mL (<0.48)
--- NOTE | 2023-08-21 18:53 | PC.NURSE ---
nitro x2 given, CP decreased from 5/10 to 3/10. provider aware 1754: 1st nitro given with no relief 06/14 1818: 2nd nitro given with relief 04/14
[2023-08-21] MEDS: ACETAMINOPHEN 500 MG TABLET 1000 MG PO (18:56)
[2023-08-21] MEDS: ONDANSETRON INJ 4 MG/2 ML VIAL IV PUSH (18:57)
--- NOTE | 2023-08-21 20:20 | PM.IMHP ---
H&P: HPI History of Present Illness Date/Time: 08/21/23 20:20 Chief Complaint: chest pain Narrative: This is a 63 yo female with PMHx significant for Sjogren's, SLE, Breast CA s/p double mastectomy, HTN. Patient presents to ED due to uncontrolled HTN, headache, blurry vision, chest pain precordial with radiaiton to L shoulder, on and off, worse with deep breaths however shoulder pain started today with heaviness denies any fevers, rigors, chills, palpitations, dizziness, lightheadedness, pnd, orthopnea, leg swelling, no cough. Preliminary work up was significant for high blood pressure, trop x one undetectable, EXAMINATION: CT brain wo con DATE: 08/21/2023 18:08 INDICATION: HTN, HAs, blurry vision . TECHNIQUE: Computed tomography (CT) of the head was performed without intravenous contrast. The mA was adjusted according to patient size. Iterative reconstruction technique was employed. The dose-length product was 605.33 mGy-cm. COMPARISON: 09/07/2022. FINDINGS: No acute intracranial hemorrhage or extra-axial fluid collection. No hydrocephalus, mass, or herniation. No acute ischemic infarct. Unremarkable dural venous sinus attenuation. No acute osseous abnormality. Mild right maxillary and ethmoid mucosal thickening, the remaining aerated spaces are clear. Mild atrophy. Moderate chronic white matter change. Atherosclerotic intracranial calcification. IMPRESSION: No acute intracranial process. EXAMINATION: XR chest 2V Exam Date/Time: 08/21/2023 18:05 CDT HISTORY: htn, pain in L arm, abnml ekg Comparison: 09/07/2022. RESULT: Lines, tubes, and devices: Cholecystectomy clips. Lungs and pleura: Clear. Cardiomediastinal silhouette: Stable. Other: No acute osseous or upper abdominal finding. IMPRESSION: No acute cardiopulmonary process. [facility] Past Medical History Medical History Anxiety Arthritis Bowel obstruction Brain concussion Depression Early cataracts, bilateral GERD (gastroesophageal reflux disease) History of inguinal hernia History of kidney stones History of rectal polyps Hx of bladder cancer Hx of rotator cuff tear Rt. Lupus erythematosus MVP (mitral valve prolapse) Surgical History Surgical History History of appendectomy History of bladder suspension procedure History of cholecystectomy History of colonoscopy History of cystoscopy History of dilation and curettage x2. History of hip surgery History of hysterectomy History of inguinal hernia repair History of intestinal surgery For bowel obstruction. History of mastectomy, total History of oophorectomy Rt. History of shoulder replacement Rt. Hx of cardiac cath Status post total hip replacement, right Family History Family History Father Malignant neoplasm of prostate Diabetes mellitus Mother Hypertension Cerebrovascular accident Diabetes mellitus Breast cancer Daughter Breast cancer Social History Social History Social History: She is . The patient has 3 children. She is a lifelong nonsmoker. She is retired from [employer]. Code status full code Smoking status: Former smoker Alcohol intake: never Alcohol use details: wine - occasionally Substance use: never Substance use type: does not use Do You Feel Safe in your Home?: Yes Lack of Transportation: No Lack of Food: Never True Current Housing: I Have Housing Concerned About Future Housing: No Difficulty Paying Gas/Electric Bills: No Difficulty Paying for Meds: No Currently Unemployed: No Education: Associate Degree Difficulty w/ Childcare or Family Care: No Gender identity (if verbalized by the patient): Female Spiritual care concerns:
--- NOTE | 2023-08-21 20:23 | EST_ITS ---
Patient Info Name: Josy Pacheco Age: 63 years : 1960 Gender: Female Ht: 65 in Wt: 154 lbs BSA: 1.80 m2 HR: 54 bpm BP: 151 / 81 mmHg Heart Rhythm: Sinus Rhythm Exam Date: 08/22/2023 10:24 AM Exam Location: Echo Lab Patient Status: Inpatient Admit Date: 08/21/2023 Staff Ordering Physician: Pam Hess PA-C Attending Provider: Minal Pantoja MD Exercise Technologist: Ijeoma Llamas RDCS Exercise Physician: Maria Fernanda Sheppard MD Exam Type: CA stress juana w NM Study Info A regadenoson stress test was performed. Summary 1. No abnormal ST/T wave changes diagnostic of ischemia with Lexiscan. 2. Occasional PACs. 3. Occasional PVCs. 4. Please correlate with nuclear medicine images, reported separately. 5. Stress test supervised by and interpreted by Maria Fernanda Sheppard MD. Protocol: Lexiscan Stress ECG Details Stage: REST Duration (min): 1 min : 7 sec HR (bpm): 54 SBP (mmHg): 151 DBP (mmHg): 81 Stage: REST Duration (min): 20 min : 5 sec HR (bpm): 54 SBP (mmHg): 151 DBP (mmHg): 81 Stage: STAGE 1 Duration (min): 1 min : 0 sec HR (bpm): 81 SBP (mmHg): 163 DBP (mmHg): 62 Stage: RECOVERY Duration (min): 1 min : 0 sec HR (bpm): 83 SBP (mmHg): 163 DBP (mmHg): 62 Stage: RECOVERY Duration (min): 2 min : 0 sec HR (bpm): 85 SBP (mmHg): 163 DBP (mmHg): 62 Stage: RECOVERY Duration (min): 3 min : 0 sec HR (bpm): 80 SBP (mmHg): 160 DBP (mmHg): 73 Stage: RECOVERY Duration (min): 4 min : 0 sec HR (bpm): 84 SBP (mmHg): 160 DBP (mmHg): 73 Stage: RECOVERY Duration (min): 5 min : 0 sec HR (bpm): 78 SBP (mmHg): 175 DBP (mmHg): 76 Stage: RECOVERY Duration (min): 5 min : 13 sec HR (bpm): 78 SBP (mmHg): 175 DBP (mmHg): 76 Rest HR: 54 bpm Peak HR: 92 bpm Rest Sys BP: 151 mmHg Peak Sys BP: 175 mmHg Max Pred HR: 155 bpm % Max Pred HR: 59 % Target HR: 132 bpm Max RPP: 16,100 bpm*mmHg Total Time: 1 min : 0 sec Rest Huerta BP: 81 mmHg Peak Huerta BP: 76 mmHg Total Dose: 0.4 mg Resting ECG Sinus bradycardia. Incomplete right bundle branch block. Stress ECG Sinus bradycardia. No abnormal ST/T wave changes diagnostic of ischemia with Lexiscan. Arrhythmias Occasional PVCs. Occasional PACs. Report Signatures
--- NOTE | 2023-08-21 20:32 | ECG_ITS ---
Test Date: 2023-08-21 20:58:57 Measurements Intervals [place] Rate: 56 P: 43 MT: 172 QRS: -10 QRSD: 118 T: 38 QT: 470 QTc: 456 Interpretive Statements SINUS BRADYCARDIA INCOMPLETE LEFT BUNDLE BRANCH BLOCK BORDERLINE T WAVE ABNORMALITY- ANTERIOR LEADS BASELINE ARTIFACT- I, III, AVR, AVL BORDERLINE ECG Compared to ECG 08/21/2023 16:14:44 NO SIGNIFICANT CHANGE Electronically Signed On 08-22-2023 07:25:22 CDT by Saurav Gonsalez D.O.
[2023-08-21 21:01] LABS: Troponin I < 0.012 ng/mL (0.000-0.034)
--- NOTE | 2023-08-21 21:53 | ADMGEN ---
This patient, Josy Pacheco, was admitted to IMU Room 211-01. Patient/family oriented to hospital policies and general routines including ID bracelet, bed and alarms, visiting hours, pain management, procedures, bathroom and other care routines, personal items, smoking policy, room service/diet, and visiting hours. Information on how to activate the Rapid Response Team has been discussed. Patient/Family are encouraged to report perceived risks to care and to ask questions if they do not understand what they are told or what they should do.
[2023-08-22] VITALS (11 sets, daily range): BP systolic 138–157; BP diastolic 46–59; PULSE 52–61; RESP 16–18; TEMP 36.3–36.5; O2SAT 97–100
[2023-08-22 00:25] LABS: Troponin I < 0.012 ng/mL (0.000-0.034)
[2023-08-22] MEDS: nadoloL 10 MG TABLET 30 MG PO (08:27)
[2023-08-22] MEDS: LOSARTAN POTASSIUM 25 MG TABLET PO (08:27)
[2023-08-22] MEDS: cycloSPORINE 0.4 ML OPHTH SOLUTION 1 DROP EACH EYE (08:27)
[2023-08-22] MEDS: ASPIRIN 81 MG ENTERIC TABLET PO (08:27)
[2023-08-22] MEDS: HYDROXYCHLOROQUINE SULFATE 200 MG TABLET PO (08:27)
--- NOTE | 2023-08-22 09:31 | PC.NURSE ---
Pt to nuclear medicine for Lexiscan via wheelchair
--- NOTE | 2023-08-22 11:23 | PC.NURSE ---
Pt returned from nuclear medicine via wheelchair. No issues noted
[2023-08-22] MEDS: FUROSEMIDE 20 MG TABLET PO (11:48)
--- NOTE | 2023-08-22 12:36 | PM.DS ---
DS: Admitting Diagnosis Discharge Date August 22, 2023 Admitting Diagnosis Chest pain DS: Discharge Diagnosis Discharge Diagnosis (1) Elevated blood pressure reading with diagnosis of hypertension: Code(s): I10 - Essential (primary) hypertension Status: Acute (2) Headache: Qualifiers: Headache chronicity pattern: acute headache Headache type: unspecified Intractability: not intractable Qualified Code(s): R51.9 - Headache, unspecified Code(s): R51.9 - Headache, unspecified Status: Acute (3) Chest pain: Qualifiers: Chest pain type: unspecified Qualified Code(s): R07.9 - Chest pain, unspecified Code(s): R07.9 - Chest pain, unspecified Status: Acute (4) senior care use of drug: Code(s): Z79.899 - Other meterman (current) drug therapy Status: Acute (5) Sjogrens syndrome: Code(s): M35.00 - Sjogren syndrome, unspecified Status: Acute DS: Summary Hospital Course Hospital Course: 63-year-old female PMH depression and anxiety, arthritis, GERD, history of bladder cancer, history of breast cancer status post double mastectomy, SLE, Sjogren's, hypertension, mitral valve prolapse. She presents to [facility] on 08/21/2023 with headache blurry vision chest pain which is describes of precordial with radiation to the left shoulder. It waxes and wanes and worsens with deep breath. Evaluation demonstrated normal white count, troponin negative x2, EKG without acute ischemia, head CT without acute intracranial process, chest x-ray two view without acute cardiopulmonary process, left shoulder x-ray four view without acute bony abnormality. Lexiscan stress test completed which did not demonstrate any acute abnormalities. As well, her headache and pain have improved. Therefore she is stable for discharge to home on 08/22/2023. Her systolic blood pressure ranging between 130 and 160. Losartan 25 mg p.o. q.day has been started on a prescribed on discharge. In addition, the patient believes her pilocarpine does not really work and given it can have side effects of chest pressure and myalgias patient is side it will be best to stop that and monitor for continued improvement. Adverse effects, risk and benefits discussed with the patient to which she understood and agreed to the plan above as well. Advised to follow with PCP within 1 week. Full code. Time Spent with Patient Time attestation: Total time spent providing and/or coordinating discharge services: Exam Const: General: comfortable and no acute distress Eyes: Pupils: Equal, round and reactive pupils present Neck: Neck: supple Resp: Effort & Inspection: normal respiratory effort Auscultation: clear to auscultation bilaterally Cardio: Rate: regular rate Rhythm: regular rhythm GI: GI Palp: Yes Soft to palpation and No Tenderness to palpation present (GI) Extrem: General: no edema DS: Data Data Completed and Pending Labs on day of discharge: Labs from last 24 hours 08/21/23 08/21/23 08/21/23 23:49 20:31 17:48 WBC RBC Hgb Hct MCV MCH MCHC RDW Plt Count MPV Immature Gran % (Auto) Neut % (Auto) Lymph % (Auto) [place]ard % (Auto) Eos % (Auto) Baso % (Auto) Lymph # (Auto) [place]ard # (Auto) Eos # (Auto) Baso # (Auto) Abs Immat Gran (auto) Absolute Neuts (auto) Absolute Nucleated RBC Nucleated RBC % PT INR APTT D-Dimer Sodium Potassium Chloride Carbon Dioxide Anion Gap BUN Creatinine Estim Creat Clear Calc Estimated GFR Glucose Calcium Magnesium Total Bilirubin AST ALT Alkaline Phosphatase Troponin I < 0.012 < 0.012 NT-Pro-B Natriuret Pep Cancelled Total Protein 8.0 Albumin 4.5 08/21/23 08/21/23 08/21/23 17:48 17:48 17:48 WBC 6.9 RBC 4.06 L Hgb 13.1 Hct 38.6 MCV 95.1 MCH 32.3 MCHC 33.9 RDW
== END 2023-08-22 14:34 | disposition home or self-care (01) ==
LOC: ANHED 17:37 → ANHIMU 21:41
PROVIDERS: Admitting Provider Internal Medicine; Emergency Provider Physician Assistant; PCP Family Medicine; Visit Provider General Practice
DX: I10 Essential (primary) hypertension (principal); R07.9 Chest pain, unspecified; R51.9 Headache, unspecified; R94.31 Abnormal electrocardiogram [ECG] [EKG]; M32.9 Systemic lupus erythematosus, unspecified; M35.00 Sjogren syndrome, unspecified; I34.1 Nonrheumatic mitral (valve) prolapse; K21.9 Gastro-esophageal reflux disease without esophagitis; F41.9 Anxiety disorder, unspecified; F32.A Depression, unspecified; Z85.51 Personal history of malignant neoplasm of bladder; Z79.82 Long term (current) use of aspirin; Z87.891 Personal history of nicotine dependence; Z85.3 Personal history of malignant neoplasm of breast; Z90.13 Acquired absence of bilateral breasts and nipples
CPT/HCPCS: 36415; 70450; 71046; 73030; 78452; 80053; 83735; 83880; 84484; 85025; 85380; 85610; 85730; 93005; 93017; 96374; 99285; A9270; A9502; G0378; J2405; J2785

== ENCOUNTER 2024-01-17 08:40 | Outpatient (CLI) | payer MEDICARE, SELFPAY ==
--- NOTE | ~2024-01-17 | XR_ITS ---
XR chest 2V 01/17/2024 08:50 Indication: Cough Procedure: 2 view chest Comparison: Comparison to multiple prior studies sequentially, with oldest reviewed study dated 04/15. Findings: Heart size normal. No focal air space disease, pulmonary edema, pleural effusion or suspect ed pneumothorax. There is chronic scarring in the left lung base. There are cholecystectomy clips. Impression: 1: No acute cardiopulmonary disease. Reviewed, dictated and finalized at location B. [employer]INE[employer] Impression: 1: No acute cardiopulmonary disease.
== END 2024-01-17 08:41 | disposition home or self-care (01) ==
LOC: GOSHIMG 08:41
PROVIDERS: PCP Family Medicine; Visit Provider Nurse Practitioner
DX: R05.9 Cough, unspecified (principal)
CPT/HCPCS: 71046

== ENCOUNTER 2024-05-19 08:34 | Outpatient (CLI) | payer MEDICARE, SELFPAY ==
--- NOTE | ~2024-05-19 | US_ITS ---
Abdominal Sonogram: Real-time sonographic imaging of the abdomen was performed. Clinical History: Abnormal serum enzyme levels Findings: The liver appears echogenic with no evidence of mass lesion or bile duct dilatation. Main portal vein demonstrates normal direction of flow. The spleen is normal in size without evidence of f ocal lesion. The gallbladder is absent, compatible with prior cholecystectomy. The common bile duct measures 5 mm. The visualized pancreas, aorta, and IVC are unremarkable. The right kidney measures 9.3 cm in length and the left kidney measures 11.3 cm. There is no hydronephrosis or renal calculus. Impression: Diffuse fatty infiltration of liver. Status post cholecystectomy. Reviewed, dictated and finalized at location . Impression: Diffuse fatty infiltration of liver. Status post cholecystectomy.
== END 2024-05-19 08:35 | disposition home or self-care (01) ==
PROVIDERS: Visit Provider Nurse Practitioner
DX: R74.8 Abnormal levels of other serum enzymes (principal); K76.0 Fatty (change of) liver, not elsewhere classified; Z90.49 Acquired absence of other specified parts of digestive tract
CPT/HCPCS: 76700

== ENCOUNTER 2024-06-11 01:03 | Day surgery (SDC) | payer MEDICARE, SELFPAY ==
[2024-05-30 15:48] VITALS: BMI 25.0
--- OUTSIDE RECORDS SUMMARY | 2024-06-11 01:06 | XMS_ITS | Encounter Summary ---
Author Organization [employer] Address 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
--- OUTSIDE RECORDS SUMMARY | 2024-06-11 01:06 | XMS_ITS | Clinical Summary ---
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 Gender Identity Not on file Sexual Orientation Not on file Plan of Treatment Health Maintenance Due Date Last Done Comments DEXA Bone Density 1960 Hepatitis C Virus (HCV) Screening 1960 TdaP Immunization 1960 Pap Smear 1979 Cervical Cancer Screening (CCS) 02/18/1988 HPV/Cotest 02/18/1988 Colonoscopy 2003 Colorectal Cancer Screening 2003 Cologuard 02/18/2008 Immunochemical Fecal Occult Blood 02/18/2008 Mammogram 02/18/2008 Pneumococcal Immunization (5 0+ years) (1 of 1 - PCV) 02/18/2008 Zoster Immunization (1 of 2) 02/18/2008 Influenza Immunization (#1) 10/07/202312/06, 12/25/2013 SARS-COV-2 Immunization (2023- season) 2023 Respiratory Syncytial Virus (RSV) Immunization (Adult) (1 - 1-dose 75+ series) 2033 Hepatitis B Immunization Aged Out No longer eligible based on patient's age to complete this topic Meningococcal Immunization (ACWY) Aged Out No longer eligible b ased on patient's age to complete this topic Rotavirus Immunization Aged Out No lo nger eligible based on patient's age to complete this topic
--- OUTSIDE RECORDS SUMMARY | 2024-06-11 01:06 | XMS_ITS | Encounter Summary ---
Author Organization [email or web address] Address [address] [place] [address] Care Team Providers Care Licensed Final Expense Agents Name Role Phone Rodney Mederos MD Primary Care Provider [phone]- [phone] Encounter Details Date Type Department Care Team (Late st Contact Info) Description 02/07/2002 Outpatient Historical [facility] Jessica Davila MD [address] 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
--- OUTSIDE RECORDS SUMMARY | 2024-06-11 01:06 | XMS_ITS | Clinical Summary ---
Author Organization 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 Gender Identity Not on file Sexual Orientation Not on file Plan of Treatment Health Maintenance Due Date Last Done Comments Colorectal Cancer Screening Colonoscopy (10 Years) 1960 Hepatitis C 02/18/1976 DTaP, Tdap and Td Vaccines ( 1 - Tdap) 1977 Mammogram Screening 1998 Pneumococcal Vaccine: 50+ Ye ars (1 of 1 - PCV) 02/18/2008 Zoster Vaccines (1 of 2) 02/18/2008 Dexa Scan (General) 2023 COVID-19 Vaccine ( - 2023-2 5 season) 2023 RSV Immunization or 60+ Years (1 - 1-dose 75+ series) 2033 Meningococcal B Vaccine Aged Out No l onger eligible based on patient's age to complete this topic Meningococcal Vaccine Aged Out No satish jabier eligible based on patient's age to complete this topic RSV Immunizations Under 20 Months Aged Out No longer eligible based on patient's age to complete this topic
--- OUTSIDE RECORDS SUMMARY | 2024-06-11 01:06 | XMS_ITS | Clinical Summary ---
Author Organization [facility] field Address [address] [place] [phone] Phone Care Team Providers Care Pretzel Twister Name Role Phone Rodney Mederos MD Primary Care Provider [phone]- [phone] Allergies Active Allergy Reactions Criticality Noted Date Comments Clarithromycin Rash High 07/03/2012 Codeine Rash High 07/03/2012 Gabapentin Rash High 07/03/2012 Iodinated Contrast Media Shortness of Breath/Wheezing,Norman h High 07/03/2012 Minocycline Rash High 07/03/2012 Morphine Rash High 07/03/2012 Naproxen Swelling High 07/03/2012 Lip swelling Novacet Rash High 07/03/2012 Ofloxacin Rash High 07/03/2012 Penicillins Other (See Comments) High 07/03/2012 Throat swelling Sulfa (Sulfonamide Antibiotics) Rash High 07/03/2012 Sulfamethoxazole-Trimetho prim Rash High 07/03/2012 Medications metoprolol succinate ER 24 hour (TOPROL-XL) 50 mg Oral tablet Take 50 mg by mouth daily. bid Active MULTIVIT &MINERALS/JENNY US FUM (MULTI VITAMIN ORAL) Take by mouth. A ctive hydrocortisone acetate (ANUSOL-HC) 25 mg Suppository Insert 1 Suppository by rectum 2 times daily as needed for Itching. 12 Suppository 1 05/15/19 14 Active hydrOXYchloroQU INE (PLAQUENIL) 200 mg tablet TK 1 T PO BID 07/13/19 20 Active metoprolol tartrate (LOPRESSOR) 25 mg tablet TK 1 T PO BID 09/17/19 20 Active leflunomide (ARAVA) 10 mg tablet 07/31/19 20 Active cyclobenzaprine (FLEXERIL) 10 mg tablet Take 10 mg by mouth. 06/28/19 19 Active Active Problems Problem Noted Date Diagnosed Date Internal hemorrhoids 05/14/2013 Hx of adenomatous polyp of colon 10/10/2012 Overview (10/10/2012): 07/2012: Small cecal adenoma. Nausea alone 10/10/2012 Overview (10/10/2012): EGD November of 2000 to evaluate symptoms of dyspepsia was negative. Diarrhea 07/03/2012 Hematochezia 07/03/2012 Abdominal pain, right lower quadrant 07/03/2012 Overview (05/29/2013): 07/2012: Colonoscopy to moderate diverticulosis and small adenoma cecum. Operative note from Dr. Baudilio Newton from October 2004 when Mrs. Pacheco underwent diagnostic laparoscopy and adhesiolysis for chronic right lower quadrant pelvic pain. He described extensive adhesions. Her last imaging in the [facility] database from January [address] scan of the abdomen and pelvis which revealed fatty liver, surgical changes post-cholecystectomy and hysterectomy, and no identifiable cause of low abdominal/pelvic pain. There was evidence for c onstipation and sigmoid diverticulosis. Saw Dr Llanos 05/2013. Referred to pain management for possible injection of old inguinal hernia scar. Family History Medical History Relation Name Comments Colon Polyps Brother Asthma Daughter Colon Cancer Maternal Uncle Breast Cancer Mother Liver Disease Mother Breast Cancer Other Ovarian Cancer Other Relation Name Status Comments Brother Daughter Father Alive Maternal Uncle Mother Alive Other Social History Tobacco Use Types Packs/Day Years Used Date Smoking Tobacco: Never Smokeless Tobacco: Never Alcohol Use Standard Drinks/Week Comments Yes 0 (1 standard drink = 0.6 oz pur e alcohol) 1-2 glasses a week Comments No Sex and Gender Information Value Date Recorded Sex Assigned at Not on file 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 Gender Identity Not on file Sexual Orientation Not on file Occupation Industry Job Start Date Job End Date Not on file Not on file Not on file Not on file Last Filed Vital Signs Vital Sign Reading Time Taken Comments Blood Pressure 131/82 10/02/2019 1:15 PM CDT Pulse 72 10/02/2019 1:15 PM CDT Temperature 36.3 C (97.3 F) 07/23/2017 9:38 AM CDT Respiratory Rate 16 07/23/2017 9:50 AM CDT Oxygen Saturation 95% 07/23/2017 9:50 AM CDT Inhaled Oxygen Concentration - - Weight 68.5 kg (151 lb) 10/02/2019 1:15 PM CDT Height 165.1 cm (5' 5 ) 10/02/2019 1:15 PM CDT Body Mass Index 25.13 10/02/2019 1:15 PM CDT Plan of Treatment Health Maintenance Due Date Last Done Comments DTAP/TDAP/TD VACCINES (1 - Tdap) 1977 PNEUMOCOCCAL VACCINE 50+ YEA RS (1 of 2 - PCV) 1977 ZOSTER VACCINE (1 of 2) 1977 BREAST CANCER SCREENING 1998 FIT-DNA Q 3 years 2003 FIT/FOBT Q 1 year 2003 Flex Sig/CT Colonography Q 5 years 2003 RSV VACCINE (60+ or ) (1 - Risk 60-74 years 1-dose series) 2018 OSTEOPOROSIS SCREENING 2023 INFLUENZA VACCINE (#1) 2023 11/16/2017 COLORECTAL SCREENING 07/23/2024 07/23/2017, 07/23/2017, 07/23/2017, Additional history exists Colorectal Cancer Screening 07/23/2024 Procedures Procedure Name Priority Date/Time Associated Diagnosis Comments COLONOSCOPY REPORT 07/23/2017 9: 38 AM CDT from Last 3 Months or Most Recently Relevant to Health Maintenance Results * COLONOSCOPY REPORT (07/23/2017 9:38 AM CDT) Narrative Procedure Note Sarthak Leon MD - 07/23/2017 9:37 AM CDT [facility] Endoscopy Patient Name: Josy Pacheco Procedure Date: 07/23/2017 Date of : 1960 Admit Type: Outpatient Attending MD: Sarthak Leon MD Procedure: Colonoscopy Indications: Surveillance: Personal history of small adenomatous polyp on last colonoscopy 5 years ago. Family history of colon cancer (maternal uncle). Mom with polyps. Providers: Sarthak Leon MD Referring MD: Rodney Mederos MD Medicines: Propofol per Anesthesia Complications: No immediate complications. Procedure: Informed consent was obtained for the procedure, including moderate sedation after risks were discussed. Based on the pre-procedure assessment, including review of the patient's medical history, medications, allergies, and review of systems, the patient was deemed to be an appropriate candidate for sedation. A timeout was performed. Continuous ECG monitoring, pulse oximetry, blood pressure monitoring, and direct observation were performed. The scope was introduced through the anus and advanced to the terminal ileum, with identification of the appendiceal orifice and IC valve. The colonoscopy was performed without difficulty. The patient tolerated the procedure well. The quality of the bowel preparation was good. Estimated Blood Loss: Estimated blood loss: none. Findings: Internal hemorrhoids were found during retroflexion. The hemorrhoids were large. A few small-mouthed diverticula were found from the sigmoid to the descending colon. No other significant abnormalities were identified in a careful examination of the remainder of the colon. Impression: - Internal hemorrhoids. - Mild diverticulosis in the sigmoid colon. Recommendation: - Repeat colonoscopy in 5-10 years for surveillance. Sarthak Leon MD 07/23/2017 9:37:35 AM This report has been signed electronically. Number of Addenda: [address]; [place] [address] Sarthak Leon MD GI PROCEDURE ORDERABLES Final Re sult from Last 3 Months or Most Recently Relevant to Health Maintenance Insurance BS BLUE ACCESS/TRUE BLUE PPO Advance Directives For more information, please contact: [phone] * Full Code (Latest Code Status on File) Date Activated Date Inactivated Comments 07/23/2017 8:12 AM 07/23/2017 12:06 PM * Full Code Date Activated Date Inactivated Comments 07/23/2012 11:38 AM 07/23/2012 3:47 PM Care Teams Pretzel Twister Relationship Specialty Start Date End Date Rodney Mederos MD [address] [place] [address] [address] [place] [id number] PCP - General Interventional Cardiology 07/03/12
--- OUTSIDE RECORDS SUMMARY | 2024-06-11 01:06 | XMS_ITS | Clinical Summary ---
Author Organization [facility] Address [address] [address] Care Team Providers Care Blasting Miner Name Role Phone Roxie Lomeli DO Primary Care Provider [phone] Source Comments [facility],non-owned Affiliates and Associated Physician Practices is amultiple site organization consisting of ambulatory clinics and hospital sitesin [place], [place], [place] and [place]. This disclosure is being madepursuant to the Care Everywhere program and may not contain all information available regarding this patient. Last updated 17.[facility] Allergies Active Allergy Reactions Criticality Noted Date Comments Doxycycline Hyclate Urticaria Medium 08/19/2020 Clarithromycin 12/13/2015 Codeine 12/13/2015 Contrast-Iodinated Agents For Ct/Other 12/13/2015 Covid-19 (Mrna) Vaccine Swelling Medium 08/18/2020 Desonide Unknown 11/07/2021 Ofloxacin 12/13/2015 Hydrocodone Skin Reactions 10/08/2020 Povidone Iodine Skin Reactions 12/13/2015 Blisters Leflunomide Other 12/03/2019 Passing blood ended up hospitalized Lisinopril Swelling 03/07/2021 Minocycline 12/13/2015 Mirvaso Unknown 11/07/2021 Morphine 12/13/2015 Mupirocin Urticaria Medium 08/19/2020 Naproxen 12/13/2015 Gabapentin 12/13/2015 Novacet 12/13/2015 Penicillins 12/13/2015 Sulfamethoxazole W-Trimethoprim 12/13/2015 Shellfish Other 12/13/2015 Shellfish Allergy 12/13/2015 Sulfa Antibiotics Urticaria Medium 11/20/2022 Sulfa Drugs 12/13/2015 Medications * Be aware that medications may not be up to date on this document. Alwaysverify current medications with the patient. Multiple Vitamins-Minera ls (MULTIVITAMIN ADULT PO) Active EPINEPHrine (EPIPEN) 0.3 MG/0.3ML auto-injector pen INJECT INTRAMUSCULARLY DIRECTED 04/26/19 22 Active nadolol (CORGARD) 20 MG tablet Take 1.5 (one and one-half) tablets by mouth once daily 08/26/19 22 Active hydroCHLOROthia zide (Hydrodiuril) 12.5 MG Take 1 (one) tablet by mouth once daily 10/12/19 22 Active acetaminophen CR (Tylenol Arthritis Pain) 650 MG tablet Take 1 (one) tablet by mouth every 8 hours as needed for Pain Active cycloSPORINE (Restasis) 0.05 % ophthalmic suspension Instill 1 (one) drop into both eyes 2 times daily 180 Each 4 07/11/19 23 Active cyclobenzaprine (Flexeril) 5 MG tablet Take 1 (one) tablet by mouth 3 times daily as needed 90 tablet 2 07/11/19 23 Active folic acid (Folvite) 1 MG tablet Take 1 (one) tablet by mouth once daily 90 tablet 4 11/21/19 23 Active methotrexate 2.5 MG tablet Take 4 (four) tablets by mouth every 7 days 16 tablet 5 04/23/19 24 Active aspirin EC (Ecotrin) 81 MG tablet Take 1 (one) tablet by mouth once daily 06/05/19 24 Active furosemide (Lasix) 20 MG tablet Take 1 (one) tablet by mouth once daily Activ e diazePAM (Valium) 5 MG tablet 1 (one) tablet 06/05/19 24 Active citalopram (CeleXA) 20 MG tablet Take 1 (one) tablet by mouth once daily 90 tablet 1 08/20/19 24 Active hydroxychloroqu ine (Plaquenil) 200 MG tabletIndicatio ns:Abnormal LFTs,Sjogren's syndrome, with unspecified organ involvement (HCC),Fibromyal lauryn,Encounter for long-term (current) use of high-risk medication,Enco unter for therapeutic drug monitoring Take 1 (one) tablet by mouth 2 times daily 180 tablet 1 08/20/19 24 Active pilocarpine HCl (Salagen) 5 MG tabletIndicatio ns:Abnormal LFTs,Sjogren's syndrome, with unspecified organ involvement (HCC),Fibromyal lauryn,Encounter for long-term (current) use of high-risk medication,Enco unter for therapeutic drug monitoring Take 1 (one) tablet by mouth 2 times daily 60 tablet 5 08/20/19 24 Active Active Problems Problem Noted Date Diagnosed Date Systemic lupus erythematosus 08/09/202206/2022 History of repair of rotator cuff 08/09/2022 08/09/2022 Hypertension 08/09/2022 08/09/2022 Simple goiter 09/08/2021 08/09/2022 Primary osteoarthritis of both hands 10/14/2020 08/09/2022 Overview (08/09/2022): Last Assessment & Plan: Worsening hand pain and stiffness. Will try voltaren gel 3 times a day. We also discussed the use of paraffin dips to help with joint pain and stiffness. S/P breast reconstruction, bilateral 09/29/2020 Increased risk of breast cancer 11/12/2018 Encounter for long-term (cur rent) use of high-risk medication 06/27/2018 Encounter for therapeutic drug monitoring 2018 Elevated liver enzymes 09/27/2017 Overview (10/21/2017): 09/28/17 Fibroscan CAP 100, E 5.6 kPa Sjogren's syndrome without extraglandular involv ement 07/30/2017 Endometriosis 08/13/2015 08/09/2022 Hx of adenomatous polyp of colon 10/10/2012 08/09/2022 Overview (08/09/2022): 07/2012: Small cecal adenoma. 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 Resolved Problems Problem Noted Date Diagnosed Date Resolved Date Abscess of breast 10/07/2020 12/15/2020 Wound dehiscence, surgical 10/07/2020 1 02/15/2020 Open breast wound, right, initial encounter 10/07/2020 12/15/2020 Delayed surgical wound healing 09/22/2020 12/15/2020 Open wound of right breast with complication 12/15/2020 Open wound of left breast Encounters Date Type Department Care Team Description 03/14/2024 Orders Only [facility] - Rheumatology [address] [place] [address] Vandana Whatley MD from Last 3 Months Immunizations Immunization Administration Dates Next Due INFLUENZA VACCINE, TRIV. (AF LURIA, FLUZONE TRIVALENT; 6MO+) (IIV3) 12/21/2016 Covid [employer] primary monoval ent 12+ yr 0.3mL Purple cap 04/16/2020 INFLUENZA VACCINE 12/24/2020,11/10/2019 INFLUENZA VACCINE, QUADR. (F LUZONE; FLULAVAL; FLUARIX; AFLURIA QUADRIVALENT; 6MO+), 0.5 ML (IIV4) 11/24/2020,11/11/2019,11/16/2017,2013 iNFLUENZA VACCINE, RECOM-JETT, QUADR. (FLUBLOCK QUADRIVALENT; 18Y+) (RIV4) 01/16/2022 Family History Medical History Relation Name Comments Cancer - Breast Daughter 1 Cancer - Breast Daughter 2 Elizabet Garcia-- has NBN variant of unknown significance as well Cancer - Skin, Melanoma Father Heart Disease Father Hypertension Father Stroke Father Cancer - Other Maternal Aunt biliary Cancer - Breast Mother Diabetes Mother Hepatitis Mother Hypertension Mother Stroke Mother Cancer - Breast Paternal Aunt Cancer - Breast Paternal Grandmother Relation Name Status Comments Daughter 1 Daughter 2 Father Maternal Aunt Mother Paternal Aunt Paternal Grandmother Social History Tobacco Use Types Packs/Day Years Used Date Smoking Tobacco: Never Smokeless Tobacco: Never Tobacco Cessation:Counseling Given: Not Answered Alcohol Use Standard Drinks/Week Comments Yes 0 (1 standard drink = 0.6 oz pur e alcohol) rare AUDIT-C Answer Date Recorded Q1: How often do you have a drink containing alc ohol? Monthly or less 04/01/2021 Average Number of Drinks Not on file 022 Q3: How often do you have si x or more drinks on one occasion? Never 04/01/2021 Comments No Sex and Gender Information Value Date Recorded Sex Assigned at Not on file Legal Sex Female 12:51 PM CDT Gender Identity Not on file Sexual Orientation Not on file Last Filed Vital Signs Vital Sign Reading Time Taken Comments Blood Pressure 169/76 08/20/2023 10:24 AM CDT Pulse 63 08/20/2023 10:24 AM CDT Temperature 37.1 C (98.7 F) 08/20/2023 10:24 AM CDT Respiratory Rate 18 08/09/2022 9:03 AM CDT Oxygen Saturation 96% 08/20/2023 10:24 AM CDT Inhaled Oxygen Concentration - - Weight 71.9 kg (158 lb 9.6 oz) 08/20/2023 10:24 AM CDT Height 165.1 cm (5' 5 ) 06/28/2023 8:13 AM CDT Body Mass Index 26.39 06/28/2023 8:13 AM CDT Plan of Treatment Health Maintenance Due Date Last Done Comments COLOGUARD (AGES 45-75) - COLON CA SCREENING 1960 CT COLONOGRAPHY - COLON CA SCREENING 1960 FIT - COLON CA SCREENING 1960 FLEX SIG - COLON CA SCREENING 1960 DTAP/TDAP/TD VACCINES (1 - Tdap) 1977 PNEUMOCOCCAL VACCINE 50+ (1 of 1 - PCV) 02/18/2008 ZOSTER VACCINE (1 of 2) 02/18/2008 COVID-19 VACCINE (2 - season) 2023 04/16/2020 DEPRESSION SCREENING 02/06/2024 MEDICARE AWV CALENDAR YEAR 2024 INFLUENZA VACCINE (Season Ended) 2024 01/16/2022, 12/24/2020, 11/24/2020, Additional history exists COLON MONITORING 12/12/2025 12/13/2015, 08/2015, 12/13/2015 COLONOSCOPY - COLON CA SCREENING 12/12/2025 12/13/2015, 12/13/2015, 12/13/2015 Colorectal Cancer Screening 12/12/2025 SCREENING FOR DIABETES 03/14/2027 , 10/30/2023, 09/25/2023, Additional history exists LIPID TESTING 05/08/2028 05/09/2023 Respiratory Syncytial Virus (RSV) Vaccine Pt: or over 60 yrs (1 - 1-dose 75+ series) 2033 HEPATITIS C SCREENING Completed 11/21/2021, 017 BONE DENSITY TESTING Completed 07/18/2022, 12/26/19 13 HEPATITIS B VACCINE Aged Out No longe r eligible based on patient's age to complete this topic HIB VACCINE Aged Out No longer eligi ble based on patient's age to complete this topic HPV VACCINE Aged Out No longer eligi ble based on patient's age to complete this topic MENINGOCOCCAL (Group B) VACCINE SHARED DECISION-MAKING Aged Out No longer eligible based on patient's age to complete this topic MENINGOCOCCAL GROUPS A/C/Y/W VACCINE Aged Out No longer eligible based on patient's age to complete this topic Medical Devices Implanted Type Area Payment Analyst Device Identifier Shelf Expiration Date Model / Serial / Lot Tissue Ex[Abe W/ Suture Tabs Smooth Moderate Height Extra Projection W/ Magna-Finder Xact & 21g Needle Infusion Set Implanted:Qty: 1 on 08/27/2020 by Natalie Ibarra MD at [facility] Left: Chest 06/15/2024 133S-MX-13 -T / [id number] / Tissue Channel Marketing Specialist With Suture Tabs Extra Projection With Magna-Finder Xact & 21g Needle Infusion Set Implanted:Qty: 1 on 08/27/2020 by Guillermo Fam MD at [facility] Chest [employer] 03/17/2024 133S-MX-13 -T / [id number] / [id number] Procedures Procedure Name Priority Date/Time Associated Diagnosis Comments C-REACTIVE PROTEIN 03/14/2024 9: 51 AM KERRICK KLEANER OPERATOR URINALYSIS W/MICROSCOPIC REFLEX TO CULTURE 03/14/2024 9:51 AM KERRICK KLEANER OPERATOR CBC W AUTO DIFFERENTIAL 03/14/2024 9:51 AM KERRICK KLEANER OPERATOR ERYTHROCYTE SEDIMENTATION RATE 03/14/2024 9:51 AM KERRICK KLEANER OPERATOR COMPREHENSIVE METABOLIC PANEL 03/14/2024 9:51 AM KERRICK KLEANER OPERATOR CULTURE URINE 03/14/2024 9:51 AM KERRICK KLEANER OPERATOR CULTURE URINE REFLEXED II 03/14/2024 9:51 AM KERRICK KLEANER OPERATOR DEXA BONE DENSITY AXIAL SKELETON Routine 07/18/2022 8:13 AM CDT Postmenopausal HEPATITIS C AB W/RFLX TO HCV RNA QN PCR 11/21/2021 10:36 AM CDT ENDOSCOPY, COLON, SCREENING Routine 12/13/2015 7:43 AM KERRICK KLEANER OPERATOR from Last 3 Months or Most Recently Relevant to Health Maintenance Results * CULTURE URINE REFLEXED II (03/14/2024 9:51 AM KERRICK KLEANER OPERATOR) Reflexive Urine Culture See Below [facility] Comment: CULTURE INDICATED - RESULTS TO FOLLOW Test Performed at: [facility] [employer] [address] LENCHO YO MD 03/14/2024 9:51 AM KERRICK KLEANER OPERATOR 03/14/2024 9:52 AM KERRICK KLEANER OPERATOR Vandana Whatley MD LAB - MICROBIOLOGY ORD ERABLES Final Result [address] [address] * (ABNORMAL) URINALYSIS W/MICROSCOPIC REFLEX TO CULTURE (03/14/2024 9:51 AM KERRICK KLEANER OPERATOR) Color UA YELLOW YELLOW [facility] Appearance CLOUDY(A) CLEAR [facility] Specific Cable UA 1.023 1.001 - 1.035 [facility] pH UA 5.5 5.0 - 8.0 [facility] Glucose UA NEGATIVE NEGATIVE [facility] Bilirubin UA NEGATIVE NEGATIVE [facility] Ketone UA NEGATIVE NEGATIVE [facility] Blood UA NEGATIVE NEGATIVE [facility] Protein UA TRACE(A) NEGATIVE [facility] Nitrite NEGATIVE NEGATIVE [facility] Leukocyte Esterase 2+(A) NEGATIVE [facility] WBC UA 0-5 < OR = 5 /HPF [facility] RBC UA 0-2 < OR = 2 /HPF [facility] Epithelial Cell UA 10-20(A) < OR = 5 /HPF [facility] Bacteria UA FEW(A) NONE SEEN /HPF [facility] Hyaline Casts 0-5(A) NONE SEEN /LPF [facility] Note See Below [facility] Comment: This urine was analyzed for the presence of WBC, RBC, bacteria, casts, and other formed elements. Only those elements seen were reported. Test Performed at: [address] [address] LENCHO YO MD 03/14/2024 9:51 AM KERRICK KLEANER OPERATOR 03/14/2024 9:52 AM KERRICK KLEANER OPERATOR us Vandana Whatley MD LAB - URINALYSIS ORDER MYRTLE Final Result Performing Organization Address [facility] Co de Phone Number [address] [address] * C-REACTIVE PROTEIN (03/14/2024 9:51 AM KERRICK KLEANER OPERATOR) C-Reactive Protein <5.0 <8.0 mg/L [facility] Comment: Test Performed at: [facility] [address] [address] LENCHO YO MD 03/14/2024 9:51 AM KERRICK KLEANER OPERATOR 03/14/2024 9:52 AM KERRICK KLEANER OPERATOR us Vandana Whatley MD LAB - CHEMISTRY ORDERA BLES Final Result Performing Organization Address [facility] [place] [address] * CULTURE URINE (03/14/2024 9:51 AM KERRICK KLEANER OPERATOR) Culture [facility] Comment: CULTURE, URINE, ROUTINE Micro Number: [id number] Test Status: Final Specimen Source: Urine Specimen Quality: Adequate Result: No Growth REPORT COMMENT: FASTING:YES Test Performed at: [facility] [address] [address] LENCHO YO MD 03/14/2024 9:51 AM KERRICK KLEANER OPERATOR 03/14/2024 9:52 AM KERRICK KLEANER OPERATOR us Vandana Whatley MD LAB - MICROBIOLOGY ORD ERABLES Final Result Performing Organization Address City/[facility]/ZIP Co de Phone Number [facility] [address] [place] [address] * ERYTHROCYTE SEDIMENTATION RATE (03/14/2024 9:51 AM KERRICK KLEANER OPERATOR) Pathologist [facility] Erythrocyte Sedimentation Rate Westergren 24 < OR = 30 mm/h [facility] Comment: Test Performed at: [facility] [address] LENCHO YO MD 03/14/2024 9:51 AM KERRICK KLEANER OPERATOR 03/14/2024 9:52 AM KERRICK KLEANER OPERATOR us Vandana Whatley MD LAB - HEMATOLOGY ORDER MYRTLE Final Result [address] [address] * CBC WITH DIFFERENTIAL (03/14/2024 9:51 AM KERRICK KLEANER OPERATOR) Pathologist [facility] White Blood Cell Count 5.2 3.8 - 10.8 Thousand/u L [facility] RBC 4.27 3.80 - 5.10 Million/uL [facility] Hemoglobin 13.1 11.7 - 15.5 g/dL [facility] Hematocrit 39.6 35.0 - 45.0 % [facility] MCV 92.7 80.0 - 100.0 fL [facility] MCH 30.7 27.0 - 33.0 pg [facility] MCHC 33.1 32.0 - 36.0 g/dL [facility] Comment: For adults, a slight decrease in the calculated MCHC value (in the range of 30 to 32 g/dL) is most likely not clinically significant; however, it should be interpreted with caution in correlation with other red cell parameters and the patient's clinical condition. RDW 12.6 11.0 - 15.0 % [facility] Platelet Count 222 140 - 400 Thousand/u L [facility] MPV 12.1 7.5 - 12.5 fL [facility] Neutrophil Absolute 3151 1500 - 7800 cells/uL [facility] Lymphocytes Absolute 1508 850 - 3900 cells/uL [facility] Absolute Monocytes 400 200 - 950 cells/uL [facility] Eosinophils Absolute 88 15 - 500 cells/uL [facility] Basophils Absolute 52 0 - 200 cells/uL [facility] Granulocytes % 60.6 % [facility] Lymphocytes % 29.0 % [facility] Monocytes % 7.7 % [facility] Eosinophils % 1.7 % [facility] Basophils % 1.0 % [facility] Comment: Test Performed at: [facility] [address] LENCHO YO MD 03/14/2024 9:51 AM KERRICK KLEANER OPERATOR 03/14/2024 9:52 AM KERRICK KLEANER OPERATOR Vandana Whatley MD LAB - HEMATOLOGY ORDER MYRTLE Final Result [address] [address] * (ABNORMAL) COMPREHENSIVE METABOLIC PANEL (03/14/2024 9:51 AM KERRICK KLEANER OPERATOR) Glucose 135(H) 65 - 99 mg/dL [facility] Comment: Fasting reference interval For someone without known diabetes, a glucose value >125 mg/dL indicates that they may have diabetes and this should be confirmed with a follow-up test. BUN 14 7 - 25 mg/dL [facility] Creatinine 0.79 0.50 - 1.05 mg/dL [facility] eGFR by Cystatin C 82 > OR = 60 mL/min/1. 73m2 [facility] BUN/Creatinine Ratio SEE NOTE: 6 - 22 (calc) [facility] Comment: Not Reported: BUN and Creatinine are within reference range. Sodium 138 135 - 146 mmol/L [facility] Potassium 4.1 3.5 - 5.3 mmol/L [facility] Chloride 103 98 - 110 mmol/L [facility] CO2 29 20 - 32 mmol/L [facility] Calcium 9.0 8.6 - 10.4 mg/dL [facility] Protein Total 7.0 6.1 - 8.1 g/dL [facility] Albumin 4.3 3.6 - 5.1 g/dL [facility] Globulin Total 2.7 1.9 - 3.7 g/dL (calc) [facility] Albumin/Globulin Ratio 1.6 1.0 - 2.5 (calc) [facility] Bilirubin Total 0.7 0.2 - 1.2 mg/dL [facility] Alkaline Phosphatase 64 37 - 153 U/L [facility] AST 25 10 - 35 U/L [facility] ALT 38(H) 6 - 29 U/L [facility] Comment: Test Performed at: [facility] [address] LENCHO OY MD 03/14/2024 9:51 AM KERRICK KLEANER OPERATOR 03/14/2024 9:52 AM KERRICK KLEANER OPERATOR us Vandana Whatley MD LAB - CHEMISTRY ORDERA JESSIE Final Result [facility] [address] [place] [address] * BONE DENSITY AXIAL SKELETON(1OR MORE SITES)[id number] (07/18/2022 8:13 AM CDT) Anatomical Region Laterality Modality Other 07/18/2022 3:47 PM CDT Narrative 07/18/2022 4:59 PM CDT PROCEDURE: DEXA BONE DENSITY AXIAL SKELETON DATE/TIME OF EXAM: 07/18/2022 8:13 AM CLINICAL INFORMATION: None relevant/not provided if blank. Indication: Z78.0: Postmenopausal COMPARISON: DEXA scan 12/25/2012. LUMBAR SPINE (L1-L4): Bone mineral density (g/cm2): 1.008 Current T-score: -0.4 LEFT FEMORAL NECK: Bone mineral density (g/cm2): 0.707 Current T-score: -1.3 BONE DENSITY ASSESSMENT: WHO Category: Osteopenia. FRAX reported because: Prior hip or vertebral fracture. Please see the PACS images for additional details. World Health Organization definitions of standard deviations relative to the mean T-score: Normal bone density = -1.0 and above Osteopenia = between -1.0 and -2.5 Osteoporosis = -2.5 and below > Dictated by Jane Bradley MD (Operator Helper) 07/18/2022 3:47 PM ICece DO have personally reviewed and interpreted this examination/study. > Interpreting Provider: Cece Stoner DO on 07/18/2022 4:59 PM Procedure Note Cece Stoner DO - 07/18/2022 PROCEDURE: DEXA BONE DENSITY AXIAL SKELETON DATE/TIME OF EXAM: 07/18/2022 8:13 AM CLINICAL INFORMATION: None relevant/not provided if blank. Indication: Z78.0: Postmenopausal COMPARISON: DEXA scan 12/25/2012. LUMBAR SPINE (L1-L4): Bone mineral density (g/cm2): 1.008 Current T-score: -0.4 LEFT FEMORAL NECK: Bone mineral density (g/cm2): 0.707 Current T-score: -1.3 BONE DENSITY ASSESSMENT: WHO Category: Osteopenia. FRAX reported because: Prior hip or vertebral fracture. Please see the PACS images for additional details. World Health Organization definitions of standard deviations relative to the mean T-score: Normal bone density = -1.0 and above Osteopenia = between -1.0 and -2.5 Osteoporosis = -2.5 and below > Dictated by Jane Bradley MD (Operator Helper) 07/18/2022 3:47PM ICece DO have personally reviewed and interpreted this examination/study. > Interpreting Provider: Cece Stoner DO on 07/18/2022 4:59 PM Vandana Whatley MD DEXA ORDERABLES Final Result * HEPATITIS C AB W/RFLX TO HCV RNA QN PCR (11/21/2021 10:36 AM CDT) Hepatitis C Antibody NON-REACTI VE NON-REACT MAGDY [facility] Signal to Cut-Off 0.01 <1.00 [facility] Comment: HCV antibody was non-reactive. There is no laboratory evidence of HCV infection. In most cases, no further action is required. However, if recent HCV exposure is suspected, a test for HCV RNA (test code 88978) is suggested. For additional information please refer to http://education.DeliverCareRx/faq/WIS82g5 (This link is being provided for informational/ educational purposes only.) Test Performed at: [facility] [address] [place] [address] SANDIE BUCKNER DO,MPH 11/21/2021 10:3 6 AM CDT 11/21/2021 10:39 AM CDT Vandana Whatley MD LAB - CHEMISTRY NATALI ROMAN Final Result [facility] [address] [place] [address] * ENDOSCOPY, COLON, SCREENING (12/13/2015 7:43 AM KERRICK KLEANER OPERATOR) Report Endoscopy POC _ Patient Name: Chloe Pacheco Procedure Date: 12/13/2015 7:43 AM Date of : 1960 Admit Type: Outpatient Age: 55 Gender: Female Attending MD: Enriqueta Ballard , _ Procedure: Colonoscopy Indications: High risk colon cancer surveillance: Personal history of colonic polyps, Incidental - Abdominal pain in the right lower quadrant Providers: Enriqueta Ballard (Doctor), Jud Pruett, MARIAM, Jennifer Marroquin (Fellow) Patient Profile: This is a 55 year old female presenting for evaluation of RLQ abdominal pain and surveillance colonoscopy. Referring MD: Sandie Mederos MD (Referring MD) Medicines: Monitored Anesthesia Care Complications: No immediate complications. _ Procedure: Pre-Anesthesia Assessment: - Prior to the procedure, a History and Physical was performed, and patient medications and allergies were reviewed. The patient's tolerance of previous anesthesia was also reviewed. The risks and benefits of the procedure and the sedation options and risks were discussed with the patient. All questions were answered, and informed consent was obtained. Prior Anticoagulants: The patient has taken aspirin, last dose was 7 days prior to procedure. ASA Grade Assessment: I - A normal, healthy patient. After reviewing the risks and benefits, the patient was deemed in satisfactory condition to undergo the procedure. After I obtained informed consent, the scope was passed under direct vision. Throughout the procedure, the patient's blood pressure, pulse, and oxygen saturations were monitored continuously. The Colonoscope was introduced through the anus and advanced to the cecum, identified by appendiceal orifice and ileocecal valve. The colonoscopy was performed without difficulty. The patient tolerated the procedure well. The quality of the bowel preparation was good. Impression: - Non-thrombosed external hemorrhoids found on perianal exam. - Diverticulosis - One 6 mm polyp in the transverse colon. Resected and retrieved. - Internal hemorrhoids. Findings: The perianal exam findings include non-thrombosed external hemorrhoids. Multiple medium-mouthed diverticula were found in the sigmoid colon, in the descending colon and in the transverse colon. A 6 mm polyp was found in the transverse colon. The polyp was sessile. The polyp was removed with a cold biopsy forceps. Resection and retrieval were complete. The remainder of the colon appeared normal. Internal hemorrhoids were found during retroflexion. The hemorrhoids were small. _ Recommendation: - Repeat colonoscopy in 5-10 years for surveillance pending biopsy results. - Return to GI office as previously scheduled. - Written discharge instructions were provided to the patient. - The signs and symptoms of potential delayed complications were discussed with the patient. - Patient has a contact number available for emergencies. - Return to normal activities tomorrow. - Resume previous diet. - Continue present medications. - Await pathology results. Procedure Code(s): --- Professional --- 26353, Colonoscopy, flexible; with biopsy, single or multiple --- Technical --- 59597, Colonoscopy, flexible; with biopsy, single or multiple Diagnosis Code(s): --- Professional --- Z86.010, Personal history of colonic polyps --- Technical --- Z86.010, Personal history of colonic polyps CPT copyright 2015 [employer]. All rights reserved. The codes documented in this report are preliminary and upon mission assessment specialist review may be revised to meet current compliance requirements. ___ Enriqueta Ballard, 12/13/2015 11:03:37 AM Number of Addenda: 0 Note Initiated On: 12/13/2015 7:43 AM Scope Withdrawal Time: 0 hours 25 minutes 8 seconds [facility] ENDOSCOPY 12/13/2015 7:43 AM KERRICK KLEANER OPERATOR Enriqueta Ballard MD GI PROCEDURE ORDERABLES E dited Result - Final [facility] ENDOSCOPY from Last 3 Months or Most Recently Relevant to [place] [address] [facility] UHC MANAGED MEDICARE ADV Advance Directives Documents on File Type Date Recorded Patient Periodicals Library Assistant Expl anation Adv Directive/Living Will/POA 08/30/2020 12:49 PM * Full Code (Latest Code Status on File) Date Activated Date Inactivated Comments 04/01/2021 8:32 PM 04/02/2021 7:11 PM * Full Code Date Activated Date Inactivated Comments 10/07/2020 7:01 PM 10/09/2020 3:09 PM * Full Code Date Activated Date Inactivated Comments 08/27/2020 4:37 PM 08/28/2020 2:14 PM Care Teams Blasting Miner Relationship Specialty Start Date End Date Roxie Lomeli DO 3 [address] [place] [address] PCP - General Family Medicine 04/23/23
--- OUTSIDE RECORDS SUMMARY | 2024-06-11 01:06 | XMS_ITS | Clinical Summary ---
Author Organization [facility] [address] [facility] Address [address] [place] [address] Care Team Providers Care Supervisor Reactor Fueling Name Role Phone Roxie Lomeli DO Primary Care Provider +1- [phone] Allergies Active Allergy Reactions Criticality Noted Date Comments Sulfacetamide Sodium-Sulfur Hives Medium 11/03/2011 Clarithromycin Rash,Itching High 02/18/2007 Codeine Rash High 07/03/2012 Codeine Hcl Headache Low 02/18/2007 Covid-19 Vaccine, Mrna, [id number], Lnp-S ([employer]) Swelling Medium 08/18/2020 Floxin I.V. In D5w Headache Low 02/18/2007 Iodinated Contrast Media Rash,Shortness of breath High 07/03/2012 Leflunomide Other (See comments) Low 12/03/2019 Passing blood ended up hospitalized Passing blood ended up hospitalized Lisinopril Swelling Medium 03/07/2021 Meloxicam Rash Medium 12/15/2019 Minocycline Rash High 07/03/2012 Morphine Rash High 07/03/2012 Morphine Hcl Itching Low 02/18/2007 Naproxen Headache,Swelling High 04/09/2006 Lip swelling Gabapentin Dizziness,Rash High 02/18/2007 Ofloxacin Rash High 07/03/2012 Penicillins Other (See comments) High 04/09/2006 Throat swelling Povidone-Iodine Shortness of breath High 12/13/2015 Sulfamethoxazole-Trimet hoprim Vomiting,Rash High 11/03/2011 Shellfish Anaphylaxis,Other (See comments) High 12/13/2015 Sulfa (Sulfonamide Antibiotics) Vomiting,Rash High 04/09/2006 Medications cycloSPORINE (Restasis MultiDose) 0.05 % drops Administer 1 drop into affected eye(s) 2 (two) times a day 09/04/19 18 Active diazePAM (VALIUM) 5 mg tablet Take 5 mg by mouth as needed 10/10/19 21 Active diphenhydrAMIN E (BENADRYL) 25 mg capsule TAKE 2 TABS BY MOUTH ONE HOUR BEFORE CONTRAST MEDIUM ADMINISTRATION. DO NOT DRIVE FOR 6 HOURS AFTER TAKING. 12/16/19 21 Active EPINEPHrine 0.3 mg/0.3 mL auto-injection syringe INJECT INTRAMUSCULARLY DIRECTED 04/26/19 22 Active hydroCHLOROthi azide (HYDRODIURIL) 12.5 mg tablet Take 12.5 mg by mouth as needed 04/14/19 22 Active ascorbic acid (VITAMIN C) 250 mg tablet Take 250 mg by mouth daily Active ergocalciferol (VITAMIN D) 50,000 unit capsule Take 1 capsule (50,000 Units total) by mouth once a week 4 capsule 1 05/27/19 22 Active cyclobenzaprin e (FLEXERIL) 5 mg tablet TAKE 1 TABLET(5 MG) BY MOUTH EVERY NIGHT 30 tablet 3 07/07/19 22 Active hydrOXYchloroQ UINE (PLAQUENIL) 200 mg tablet TAKE 1 TABLET(200 MG) BY MOUTH TWICE DAILY 180 tablet 1 07/26/19 22 Active Active Problems Problem Noted Date Diagnosed Date Chest pain 05/09/2023 Encounter for long-term (cur rent) use of high-risk medication 10/14/2020 Assessment & Plan (10/14/2020 11:31 AM CDT): Stable with no signs of toxicity. Sees ophthalmology every 6 months. Recent labs reviewed during this visit. Primary osteoarthritis of both hands 10/14/2020 Assessment & Plan (10/14/2020 11:32 AM CDT): Worsening hand pain and stiffness. Will try voltaren gel 3 times a day. We also discussed the use of paraffin dips to help with joint pain and stiffness. Sjogren's syndrome without extraglandular involv ement 07/01/2019 Assessment & Plan (01/05/2021 2:55 PM SONOSCOPE OPERATOR): Worsening symptoms of Raynauds. Will trial amlodipine at low dose (2.5 mg daily) and patient will carefully monitor BP and heart rate as she is on metoprolol for history of palpitations. She is concerned regarding multiple drug intolerances and will prefer to start only one new thing at a time, but if she isn't having improvement in her sjogren's symptoms and hand stiffness, we can see if she can try injection of MTX in addition to her HCQ. Assessment & Plan (10/14/2020 11:33 AM CDT): Chronic, appears stable and it is felt that her ongoing fatigue is related to post surgical infection and delayed wound healing and decondition during her recovery period. She declines any adjustment in her therapy at this time. Sicca symptoms relieved with Restasis and oral care. Continue hydroxychloroquine 400 mg daily. Follow up in 3-4 months, sooner if any worsening of symptoms. Immunizations Immunization Administration Dates Next Due Influenza, Quadrivalent, Spl it, Preservative Free, Intramuscular 11/24/2020,11/11/2019,11/16/2017,12/25 Influenza, Trivalent, IM (MDV) 12/21/2016 Influenza, Unspecified 11/10/2019 Pfizer SARS-CoV-2 Monovalent Vaccination (12+ Yrs) PURPLE 04/16/2020 Surgical History Surgery Date Site/Laterality Comments ID SUPRACERVICAL ABDL HYSTER W/WO RMVL TUBE OVARY Supracervical Hysterectomy - (Added by TW Conv) ID OOPHORECTOMY PARTIAL/TOTAL UNI/BI Oophorectomy - (Added by TW Conv) ID TOTAL ABDOMINAL HYSTERECT W/WO RMVL TUBE OVARY Hysterectomy - ?supracervical (Added by TW Conv) ID APPENDECTOMY Appendectomy - (Added by TW Conv) ABDOMINAL SURGERY Abdominal Surgery - adhesions x2 partial SBO (Added by TW Conv) ID CHOLECSTOT/CHOLECSTOST W/EXPL DRG/RMVL ST1 SPX Cholecystotomy - (Added by TW Conv) LAPAROSCOPY Laparoscopy (Therapeutic) - (Added by TW Conv) ID DILATION & CURETTAGE DX&/THER NONOBSTETRIC Dilation And Curettage - (Added by TW Conv) OTHER SURGICAL HISTORY 03/08/2021 - 04/04/2021 removal of spacers from double mastectomy Medical History Medical History Date Comments Personal history of other di seases of the circulatory system History of mitral valve prol apse - (Added by TW Conv) Cancer (HCC) 1988 bladder cancer Family History Medical History Relation Name Comments Breast cancer Daughter 1 Breast cancer Daughter 2 Heart disease Father Heart Disease - (Added by TW Conv) Breast cancer Maternal Grandmother Breast Cancer - DX @ 60YO (Added by TW Conv) Breast cancer Mother Breast Cancer - DX @ 68YO (Added by TW Conv) Breast cancer Mother's Sister 1 Breast Ca ncer - DX @ 40YO (Added by TW Conv) Breast cancer Mother's Sister 2 Breast Ca ncer - DX @ 60YO (Added by TW Conv) Hypertension Other 1 Hypertension - (Added by TW Conv) Diabetes type II Other 2 Type 2 Diab etes Mellitus - (Added by TW Conv) Stroke Other 3 Stroke Syndrome - (Added by TW Conv) Relation Name Status Comments Daughter 1 Daughter 2 Father Maternal Grandmother Mother Mother's Sister 1 Mother's Sister 2 Other 1 Other 2 Other 3 Social History Tobacco Use Types Packs/Day Years Used Date Smoking Tobacco: Never Smokeless Tobacco: Never Comments Unknown Sex and Gender Information Value Date Recorded Sex Assigned at Not on file Legal Sex Female 6:43 PM SONOSCOPE OPERATOR Gender Identity Female 09/30/2020 3:27 PM CDT Sexual Orientation Straight 09/30/2020 3: 27 PM CDT Obstetrics History Last Filed Vital Signs Vital Sign Reading Time Taken Comments Blood Pressure 132/86 05/09/2023 10:33 AM CDT Pulse 69 05/09/2023 10:33 AM CDT Temperature 36.7 C (98.1 F) 05/25/2021 12:12 PM CDT Respiratory Rate 16 05/25/2021 12:12 PM CDT Oxygen Saturation 96% 05/09/2023 10:33 AM CDT Inhaled Oxygen Concentration - - Weight 70.8 kg (156 lb) 05/09/2023 10:33 AM CDT Height 165.1 cm (5' 5 ) 05/09/2023 10:33 AM CDT Body Mass Index 25.96 05/09/2023 10:33 AM CDT Plan of Treatment Health Maintenance Due Date Last Done Comments Colon Cancer Screening-Colonoscopy 1960 Depression Screening 1958 Fall Risk Assessment 1960 Hepatitis C Screening 1960 DTaP/Tdap/Td Vaccine (1 - Tdap) 1969 Hepatitis B Screening 02/18/1976 Pneumococcal vaccine 65+ (1 of 2 - PCV) 1977 Zoster Vaccine (1 of 2) 1977 Covid-19 Vaccine (2 - Pfizer risk series) 05/07/2020 04/16/2020 Breast Cancer Screening-Mammogram 11/09/2020 11/10/2019, 11/13/2018, 11/12/2017, Additional history exists Well Visit 65+ 2023 Osteoporosis Screening-Bone Density Scan 07/18/2024 07/18/2022, 12/25/2012 Influenza Vaccine (Season Ended) 2024 01/16/2022, 12/24/2020, 11/24/2020, Additional history exists Procedures Procedure Name Priority Date/Time Associated Diagnosis Comments SCREENING MAMMOGRAM BILATERAL W NESTOR Schedule Routine, Read Routine (OP Routine) 11/12/2017 9:17 AM CDT Encounter for screening for malignant neoplasm of breast from Last 3 Months or Most Recently Relevant to Health Maintenance Results * Screening Mammogram Bilateral W Nestor (11/12/2017 9:17 AM CDT) Anatomical Region Laterality Modality Breast Bilateral Mammography Narrative 11/14/2017 11:25 AM CDT Mammogram Technique: Bilateral Digital Breast Tomosynthesis, Bilateral C-view 2D Screening mammogram. Views obtained: bilateral craniocaudal and bilateral mediolateral oblique. Computer Aided Detection was performed. Mammogram Findings: The present examination has been compared to prior imaging studies performed at [facility] on 09/25/2014, 09/27/2015 and 10/02/2016. There are scattered areas of fibroglandular density. There is no suspicious abnormality in either breast. Impression: Annual screening mammography is recommended. OVERALL FINAL ASSESSMENT: BI-RADS CATEGORY 1: Negative. Procedure Note Gladys Welsh MD - 11/14/2017 Mammogram Technique: Bilateral Digital Breast Tomosynthesis, Bilateral C-view 2D Screening mammogram. Views obtained: bilateral craniocaudal and bilateral mediolateral oblique. Computer Aided Detection was performed. Mammogram Findings: The present examination has been compared to prior imaging studies performed at [facility] on 09/25/2014, 09/27/2015 and 10/02/2016. There are scattered areas of fibroglandular density. There is no suspicious abnormality in either breast. Impression: Annual screening mammography is recommended. OVERALL FINAL ASSESSMENT: BI-RADS CATEGORY 1: Negative. Tabatha Tsang MD IMG MAMMO PROCEDURES Final Resu lt from Last 3 Months or Most Recently Relevant to [place] [address] [place] [address] [facility] MEDICARE ADVANTAGE Care Teams Supervisor Reactor Fueling Relationship Specialty Start Date End Date Roxie Lomeli DO [facility] [facility] [place] [address] PCP - General Family Medicine 05/09/23
--- OUTSIDE RECORDS SUMMARY | 2024-06-11 01:06 | XMS_ITS | Encounter Summary ---
Author Organization [facility] Address [address] [place] [address] Phone Care Team Providers Care Service Unit Operator Name Role Phone Rodney Mederos MD Primary Care Provider [phone] [phone] Roxie Lomeli DO Primary Care Provider [phone]- [phone] Encounter Details Date Type Department Care Team (Late st Contact Info) Description 04/15/2019 Orders Only [facility] Scanning, Provider Social History Tobacco Use Types Packs/Day Years Used Date Smoking Tobacco: Never Assessed Comments Unknown Sex and Gender Information Value Date Recorded Sex Assigned at Not on file Legal Sex Female 6:43 PM PRODUCT MERCHANDISER Gender Identity Female 09/30/2020 3:27 PM CDT Sexual Orientation Straight 09/30/2020 3: 27 PM CDT documented as of this encounter Plan of Treatment Not on file documented as of this encounter Procedures Procedure Name Priority Date/Time Associated Diagnosis Comments SCAN - RADIOLOGY/IMAGING 04/15/2019 SCAN - LABS 04/15/2019 documented in this encounter Results * SCAN - LABS (04/15/2019) us Provider Scanning Final Result * SCAN - RADIOLOGY/IMAGING (04/15/2019) Anatomical Region Laterality Modality Other us Provider Scanning Final Result documented in this encounter Visit Diagnoses Not on filedocumented in this encounter Care Teams Service Unit Operator Relationship Specialty Start Date End Date Rodney Mederos MD [address] [facility] [address] [place] [address] PCP - General 02/04/17 05/08/23 Roxie Lomeli DO [address] [address] [place] [address] PCP - General Family Medicine 05/09/23 documented as of this encounter
--- OUTSIDE RECORDS SUMMARY | 2024-06-11 01:06 | XMS_ITS | Encounter Summary ---
Author Organization [facility] Address [address] [place] [address] Care Team Providers Care Station Examiner Name Role Phone Rodney Mederos MD Primary Care Provider [phone]- [phone] Encounter Details Date Type Department Care Team (Late st Contact Info) Description 01/23/2002 Outpatient Historical [facility] IMG[facility] Kayla Canela MD [address] [facility] [address] [address] ABDOMINAL PAIN UNSPEC SITE (Primary Dx) Social History Tobacco Use Types Packs/Day Years Used Date Smoking Tobacco: Never Assessed Comments Unknown Sex and Gender Information Value Date Recorded Sex Assigned at Not on file Legal Sex Female 3:35 AM OPTOMETRIST ASSISTANT Gender Identity Not on file Sexual Orientation Not on file documented as of this encounter Plan of Treatment Not on file documented as of this encounter Visit Diagnoses Diagnosis Abdominal pain, unspecified site- Primary documented in this encounter Care Teams Station Examiner Relationship Specialty Start Date End Date Rodney Mederos MD [address] [place] [address] [address] [place] [id number] PCP - General Interventional Cardiology 07/03/12 documented as of this encounter
--- OUTSIDE RECORDS SUMMARY | 2024-06-11 01:06 | XMS_ITS | Referral Summary ---
Author Organization [facility] [address] [facility] Address [address] [place] [address] Care Team Providers Care Binding Folder Machine Name Role Phone Roxie Lomeli DO Primary Care Provider +1- [phone] Allergies Active Allergy Reactions Criticality Noted Date Comments Sulfacetamide Sodium-Sulfur Hives Medium 11/03/2011 Clarithromycin Rash,Itching High 02/18/2007 Codeine Rash High 07/03/2012 Codeine Hcl Headache Low 02/18/2007 Covid-19 Vaccine, Mrna, [id number], Lnp-S ([employer]) Swelling Medium 08/18/2020 Floxin I.V. In D5w [...] 07/01/2019 Assessment & Plan (01/05/2021 2:55 PM FLOAT PHLEBOTOMIST): Worsening symptoms of Raynauds. Will trial amlodipine [...] SARS-CoV-2 Monovalent Vaccination (12+ Yrs) PURPLE 04/16/2020 Social History Tobacco Use Types Packs/Day Years Used Date Smoking Tobacco: Never Smokeless Tobacco: Never Comments Unknown Sex and Gender Information Value Date Recorded Sex Assigned at Not on file Legal Sex Female 6:43 PM FLOAT PHLEBOTOMIST Gender Identity Female 09/30/2020 3:27 PM CDT Sexual Orientation Straight 09/30/2020 3: 27 PM CDT Last Filed Vital Signs Vital Sign Reading [...] 05/09/2023 10:33 AM CDT Plan of Treatment Not on file Procedures Procedure Name Priority Date/Time Associated Diagnosis [...] compared to prior imaging studies performed at [facility] on 09/25/2014, 09/27/2015 and 10/02/2016. There are [...] compared to prior imaging studies performed at [facility] on 09/25/2014, 09/27/2015 and 10/02/2016. There are scattered areas of fibroglandular density. There is no suspicious abnormality in either breast. Impression: Annual screening mammography is recommended. OVERALL FINAL ASSESSMENT: BI-RADS CATEGORY 1: Negative. us Tabatha Tsang MD IMG MAMMO PROCEDURES Final Resu lt from Last 3 Months or Most Recently Relevant to Health Maintenance Insurance [employer] [place] [employer] [place] [employer] MEDICARE ADVANTAGE [facility] Address: [facility] [address] [place] [address] Care Teams Binding Folder Machine Relationship Specialty Start Date End Date Roxie Lomeli DO [facility] [facility] [address] [place] [address] PCP - General Family Medicine 05/09/23
[2024-06-11 09:25] VITALS: BP 118/65; PULSE 59; RESP 20; TEMP 36.4; O2SAT 100; BMI 25.2
[2024-06-11] MEDS: LACTATED RINGERS 1,000 ML 150 ML IV CONT (09:37)
--- NOTE | 2024-06-11 09:44 | WPDANESEPPF ---
Anes - Initial Pre Proc Eval Procedure: Operation Date: 06/11/24 10:30 Proposed Procedures p Screening Colonoscopy - Lopez Boyce MD Date/Time: 06/11/24 09:44 Surgeon: Lopez Boyce MD Pre Op Diagnosis: Screening Patient Data Age: 64 Gender: F Height: 1.65 m Weight: 68.9 kg Last Vital Signs Temp 97.6 F 06/11/24 09:25 Pulse 59 L 06/11/24 09:25 Resp 20 06/11/24 09:25 BP 118/65 06/11/24 09:25 Pulse Ox 100 06/11/24 09:25 O2 Del Method Room Air 06/11/24 09:25 Allergies Allergy/AdvReac Type Severity Reaction Status Date / Time doxycycline Allergy Severe HIVES Verified 06/11/24 09:23 gabapentin Allergy Severe N/V Verified 06/11/24 09:23 Iodinated Contrast Media Allergy Severe SWELLING, Verified 06/11/24 09:23 SOB ofloxacin Allergy Severe HIVES Verified 06/11/24 09:23 shellfish derived Allergy Severe SWELLING, Verified 06/11/24 09:23 SOB sulfamethoxazole Allergy Severe SWELLING, Verified 06/11/24 09:23 SOB clarithromycin Allergy Unknown Unknown Verified 06/11/24 09:23 codeine Allergy Unknown Unknown Verified 06/11/24 09:23 iodine Allergy Unknown Unknown Verified 06/11/24 09:23 minocycline Allergy Unknown Unknown Verified 06/11/24 09:23 morphine Allergy Unknown Unknown Verified 06/11/24 09:23 naproxen Allergy Unknown Unknown Verified 06/11/24 09:23 Penicillins Allergy Unknown Unknown Verified 06/11/24 09:23 Sulfa (Sulfonamide Allergy Unknown Unknown Verified 06/11/24 09:23 Antibiotics) sulfamethizole Allergy Unknown Unknown Verified 06/11/24 09:23 trimethoprim Allergy Unknown Unknown Verified 06/11/24 09:23 brimonidine AdvReac Intermediate NOT Verified 06/11/24 09:23 EFFECTIVE desonide AdvReac Intermediate NOT Verified 06/11/24 09:23 EFFECTIVE metronidazole AdvReac Intermediate NOT Verified 06/11/24 09:23 EFFECTIVE mupirocin AdvReac Intermediate NOT Verified 06/11/24 09:23 EFFECTIVE naftifine AdvReac Intermediate NOT Verified 06/11/24 09:23 EFFECTIVE NOVACET CREAM AdvReac Intermediate NON Uncoded 06/11/24 09:23 EFFECTIVE. Home Medications ?Medication ?Instructions ?Recorded ?Confirmed ?Type hydroxychloroquine 200 mg tablet 200 mg PO BID 01/18/22 06/11/24 History (Plaquenil) cyclobenzaprine 5 mg tablet 5 mg PO TID PRN Spasms 09/07/22 05/30/24 History cyclosporine 0.05 % eye drops in a 1 drp EACH EYE BID 09/07/22 06/11/24 History dropperette ascorbic acid (vitamin C) 100 mg 100 mg PO DAILY 05/07/23 05/30/24 History chewable tablet aspirin 81 mg tablet,delayed 81 mg PO DAILY 08/21/23 05/30/24 History release nadolol 20 mg tablet 30 mg (1.5 x 20 mg) PO DAILY #135 11/28/23 06/11/24 Rx tabs furosemide 40 mg tablet 40 mg PO DAILY 03/25/24 06/11/24 History metformin 500 mg tablet,extended 500 mg PO DAILY #90 tabs 05/15/24 05/30/24 Rx release 24 hr (Glucophage XR) Patient hx anesthesia problems: none Family hx anesthesia problems: none Results Review: All pre-operative results and documents have been reviewed as part of the pre-operative evaluation. [facility] Past Medical History Medical History Depression Anxiety Lupus erythematosus Arthritis Hx of rotator cuff tear Rt. History of kidney stones Hx of bladder cancer GERD (gastroesophageal reflux disease) History of inguinal hernia Bowel obstruction History of rectal polyps MVP (mitral valve prolapse) Brain concussion Early cataracts, bilateral Surgical History Surgical History History of mastectomy, total Status post total hip replacement, right History of hip surgery History of shoulder replacement Rt. History of bladder suspension procedure History of cystoscopy History of hysterectomy History of oophorectomy Rt. History of dilation and curettage x2. History of inguinal hernia repair History of cholecystectomy History of appendectomy History of intestinal surgery For bowel obstruction. History of colonoscopy Hx of cardiac cath Family History Family History Father Malignant neoplasm of prostate Diabetes mellitus Mother Hypertension Cerebrovascular accident Diabetes mellitus Breast cancer Daughter Breast cancer Social History Social History Social History: She is . The patient has 3 children. She is a lifelong nonsmoker. She is retired from [employer]. Code status full code Smoking status: Never smoker Alcohol intake: never Alcohol use details: wine - occasionally Substance use: never Substance use type: does not use Do You Feel Safe in your Home?: Yes Lack of Transportation: No Lack of Food: Never True Current Housing: I Have Housing Concerned About Future Housing: No Difficulty Paying Gas/Electric Bills: No Difficulty Paying for Meds: No Currently Unemployed: No Education: Associate Degree Difficulty w/ Childcare or Family Care: No Gender identity (if verbalized by the patient): Female Spiritual care concerns: No Anes - Eval Final PreProcedure Day of Procedure 06/11/24 09:44 Patient weight: normal Heart: regular rate and rhythm Lungs: clear to auscultation Airway: Mallampati scale class II Neurological: alert and oriented Last oral intake: >/= 8 hours ASA classification: III Emergent: no Anesthetic plan: proceed Anesthesia type and monitoring: general GIVS and standard monitoring Results Review: All pre-operative results and documents have been reviewed as part of the pre-operative evaluation. Informed Consent: The patient's anesthetic plan and its attendant risks and benefits were discussed with the patient/family/POA. Questions were solicited and answers provided to the satisfaction of the patient/family/POA.
--- NOTE | 2024-06-11 09:47 | P.HP_ITS ---
History of Present Illness History of Present Illness Consent: Risks, benefits, and alternatives have been discussed and questions answered. Patient agrees to proceed with procedure. Chief complaint: Screening Narrative: Josy Pacheco is a 64 year old female with polyp in 2018, also last few months with diarrhea Review of Systems Review of Systems: All systems reviewed & are unremarkable except as noted in HPI and below PMFSH Past Medical History Medical History (Updated 06/11/24 @ 09:48 by Lopez Boyce MD) Diarrhea Depression Anxiety Lupus erythematosus Arthritis Hx of rotator cuff tear Rt. History of kidney stones Hx of bladder cancer GERD (gastroesophageal reflux disease) History of inguinal hernia Bowel obstruction History of rectal polyps MVP (mitral valve prolapse) Brain concussion Early cataracts, bilateral Surgical History Surgical History History of mastectomy, total Status post total hip replacement, right History of hip surgery History of shoulder replacement Rt. History of bladder suspension procedure History of cystoscopy History of hysterectomy History of oophorectomy Rt. History of dilation and curettage x2. History of inguinal hernia repair History of cholecystectomy History of appendectomy History of intestinal surgery For bowel obstruction. History of colonoscopy Hx of cardiac cath Family History Family History Father Malignant neoplasm of prostate Diabetes mellitus Mother Hypertension Cerebrovascular accident Diabetes mellitus Breast cancer Daughter Breast cancer Social History Social History Social History: She is . The patient has 3 children. She is a lifelong nonsmoker. She is retired from [employer]. Code status full code Smoking status: Never smoker Alcohol intake: never Alcohol use details: wine - occasionally Substance use: never Substance use type: does not use Do You Feel Safe in your Home?: Yes Lack of Transportation: No Lack of Food: Never True Current Housing: I Have Housing Concerned About Future Housing: No Difficulty Paying Gas/Electric Bills: No Difficulty Paying for Meds: No Currently Unemployed: No Education: Associate Degree Difficulty w/ Childcare or Family Care: No Gender identity (if verbalized by the patient): Female Spiritual care concerns: No Meds Home Medications and Allergies Home Medications ?Medication ?Instructions ?Recorded ?Confirmed ?Type hydroxychloroquine 200 mg tablet 200 mg PO BID 01/18/22 06/11/24 History (Plaquenil) cyclobenzaprine 5 mg tablet 5 mg PO TID PRN Spasms 09/07/22 05/30/24 History cyclosporine 0.05 % eye drops in a 1 drp EACH EYE BID 09/07/22 06/11/24 History dropperette ascorbic acid (vitamin C) 100 mg 100 mg PO DAILY 05/07/23 05/30/24 History chewable tablet aspirin 81 mg tablet,delayed 81 mg PO DAILY 08/21/23 05/30/24 History release nadolol 20 mg tablet 30 mg (1.5 x 20 mg) PO DAILY #135 11/28/23 06/11/24 Rx tabs furosemide 40 mg tablet 40 mg PO DAILY 03/25/24 06/11/24 History metformin 500 mg tablet,extended 500 mg PO DAILY #90 tabs 05/15/24 05/30/24 Rx release 24 hr (Glucophage XR) Allergies Allergy/AdvReac Type Severity Reaction Status Date / Time doxycycline Allergy Severe HIVES Verified 06/11/24 09:23 gabapentin Allergy Severe N/V Verified 06/11/24 09:23 Iodinated Contrast Media Allergy Severe SWELLING, Verified 06/11/24 09:23 SOB ofloxacin Allergy Severe HIVES Verified 06/11/24 09:23 shellfish derived Allergy Severe SWELLING, Verified 06/11/24 09:23 SOB sulfamethoxazole Allergy Severe SWELLING, Verified 06/11/24 09:23 SOB clarithromycin Allergy Unknown Unknown Verified 06/11/24 09:23 codeine Allergy Unknown Unknown Verified 06/11/24 09:23 iodine Allergy Unknown Unknown Verified 06/11/24 09:23 minocycline Allergy Unknown Unknown Verified 06/11/24 09:23 morphine Allergy Unknown Unknown Verified 06/11/24 09:23 naproxen Allergy Unknown Unknown Verified 06/11/24 09:23 Penicillins Allergy Unknown Unknown Verified 06/11/24 09:23 Sulfa (Sulfonamide Allergy Unknown Unknown Verified 06/11/24 09:23 Antibiotics) sulfamethizole Allergy Unknown Unknown Verified 06/11/24 09:23 trimethoprim Allergy Unknown Unknown Verified 06/11/24 09:23 brimonidine AdvReac Intermediate NOT Verified 06/11/24 09:23 EFFECTIVE desonide AdvReac Intermediate NOT Verified 06/11/24 09:23 EFFECTIVE metronidazole AdvReac Intermediate NOT Verified 06/11/24 09:23 EFFECTIVE mupirocin AdvReac Intermediate NOT Verified 06/11/24 09:23 EFFECTIVE naftifine AdvReac Intermediate NOT Verified 06/11/24 09:23 EFFECTIVE NOVACET CREAM AdvReac Intermediate NON Uncoded 06/11/24 09:23 EFFECTIVE. Vital Signs Vital Signs - 24 hr 06/11/24 09:25 Temperature 97.6 F Pulse Rate 59 L Respiratory Rate 20 Blood Pressure 118/65 Pulse Oximetry 100 Oxygen Delivery Room Air Exam Const: General: comfortable and no acute distress HENMT: Face/Nose/Sinus: Normal nares present Eyes: General: appearance normal, both eyes and all related structures Neck: Neck: no JVD Resp: Auscultation: clear to auscultation bilaterally Cardio: Rate: regular rate Rhythm: regular rhythm GI: Inspection: non-distended GI Palp: Yes Soft to palpation Skin: General skin exam: normal color Neuro: Speech: normal speech Extrem: General: normal to inspection Psych: Mental Status: mental status grossly normal Assessment and Plan Assessment and plan (1) History of colonic polyps: Code(s): Z86.010 - Personal history of colon polyps Status: Acute Assessment and Plan: colonoscopy (2) Diarrhea: Code(s): R19.7 - Diarrhea, unspecified Status: Acute
[2024-06-11 10:30] VITALS: BP 115/54; PULSE 58; RESP 16; O2SAT 95
[2024-06-11 10:40] VITALS: BP 102/53; PULSE 50; RESP 16; O2SAT 97
[2024-06-11 10:50] VITALS: BP 113/62; PULSE 54; RESP 16; O2SAT 99
== END 2024-06-11 11:03 | disposition home or self-care (01) ==
PROVIDERS: PCP Family Medicine; Referring Provider Nurse Practitioner; Visit Provider Internal Medicine Gastroenterology
PROC: 0DJD8ZZ Inspection of Lower Intestinal Tract, Via Natural or Artificial Opening Endoscopic (ICD-10-PCS; CPT 45378; principal; 2024-06-11 10:30)
DX: Z12.11 Encounter for screening for malignant neoplasm of colon (principal); K64.8 Other hemorrhoids; K57.30 Diverticulosis of large intestine without perforation or abscess without bleeding; F32.A Depression, unspecified; F41.9 Anxiety disorder, unspecified; L93.0 Discoid lupus erythematosus; K21.9 Gastro-esophageal reflux disease without esophagitis; M19.90 Unspecified osteoarthritis, unspecified site; Z79.84 Long term (current) use of oral hypoglycemic drugs; Z79.82 Long term (current) use of aspirin; Z98.890 Other specified postprocedural states; Z90.49 Acquired absence of other specified parts of digestive tract; Z98.61 Coronary angioplasty status; Z86.0100 Personal history of colon polyps, unspecified; Z87.442 Personal history of urinary calculi; Z85.51 Personal history of malignant neoplasm of bladder; Z87.19 Personal history of other diseases of the digestive system; Z86.79 Personal history of other diseases of the circulatory system; Z80.42 Family history of malignant neoplasm of prostate; Z80.3 Family history of malignant neoplasm of breast; Z82.49 Family history of ischemic heart disease and other diseases of the circulatory system
CPT/HCPCS: G0105; 88305; J2003; J2704; J7120